=== PATIENT | female | born 1970 | race Caucasian/White ===

== ENCOUNTER 2016-08-22 15:20 | Inpatient (IN) | payer BC, OTHER ==
[~2016-08-22] VITALS: Ht 172.7 cm; Wt 96.5 kg
[2016-08-22] MEDS ORDERED: SODIUM CHLORIDE 0.9% 1000ML 1,000 ML IV SCH (15:55)
[2016-08-22] MEDS ORDERED: VALA500T60 PO (16:19)
[2016-08-22] MEDS ORDERED: LISI-461 PO (16:19)
[2016-08-22] MEDS ORDERED: INSDGI SC (16:19)
[2016-08-22] MEDS ORDERED: ATOR-24 PO ×2 (16:19→18:17)
[2016-08-22] MEDS ORDERED: GLIM2TAB2 PO (16:19)
[2016-08-22] MEDS ORDERED: METF-384 PO (16:19)
--- NOTE | 2016-08-22 16:26 | DIAGNOSTIC IMAGING REPORT ---
SINGLE VIEW CHEST CLINICAL HISTORY: Strokelike symptoms. FINDINGS: An AP, portable, upright chest radiograph is obtained. No prior studies are available for comparison at the time of dictation. The examination is degraded by portable technique and apical lordotic positioning. The cardiomediastinal silhouette is unremarkable. The lungs and pleural spaces are clear. No pneumothorax is seen. The bony thorax is grossly intact. IMPRESSION: No active disease in the chest. Electronically signed by: Albert Swanson M.D. 08/22/2016 4:25 PM Dictated Date/Time: 08/22/2016 4:25 PM
[2016-08-22 16:31] LABS: BASO % 0.3 %; BASO ABS # 0.03 K/uL (0-0.2); COMPLETE YES; EOS % 0.9 %; HEMATOCRIT 37.2 % (37-47); IG% 0.1 %; LYMPH % 19.9 %; LYMPH ABS # 1.92 K/uL (1.2-3.4); MEAN CELL VOLUME 81.9 fL (80-100); MEAN CORPUSCULAR HEMOGLOBIN 28.2 pg (25-34); MEAN CORPUSCULAR HGB CONC 34.4 g/dl (32-36); MEAN PLATELET VOLUME 10.5 fL (7.4-10.4); MONO % 5.5 %; NEUT % 73.3 %; PLATELET COUNT 296 K/uL (130-400); RED BLOOD COUNT 4.54 M/uL (4.2-5.4); WHITE BLOOD COUNT 9.67 K/uL (4.8-10.8)
[2016-08-22 16:39] LABS: PROTHROMBIN TIME (PATIENT) 10.3 SECONDS (9.0-12.0)
[2016-08-22 16:58] LABS: ALT/SGPT 28 U/L (12-78); BLOOD UREA NITROGEN 9 mg/dl (7-18); BUN/CREATININE RATIO 12.5 (10-20); CALCIUM 9.1 mg/dl (8.5-10.1); CARBON DIOXIDE 27 mmol/L (21-32); CHLORIDE 102 mmol/L (98-107); CREATININE 0.73 mg/dl (0.60-1.20); GLUCOSE 133 mg/dl (70-99); POTASSIUM 4.1 mmol/L (3.5-5.1); SODIUM 138 mmol/L (136-145)
[2016-08-22 17:03] LABS: ALKALINE PHOSPHATASE 72 U/L (45-117); AST/SGOT 16 U/L (15-37)
[2016-08-22 17:21] LABS: BENZODIAZEPINE, URINE NEG (NEG); COCAINE,URINE NEG (NEG); PHENCYCLIDINE, URINE NEG (NEG)
[2016-08-22] MEDS ORDERED: ONDANSETRON INJ 2 MG/ML 2 ML VIAL IV PRN (17:45)
[2016-08-22] MEDS ORDERED: PHARMACIST DISCHARGE MED REC CONSULT PRN (17:45)
[2016-08-22] MEDS ORDERED: ACETAMINOPHEN 325 MG TAB PO PRN (17:45)
[2016-08-22] MEDS ORDERED: NITROGLYCERIN 0.4 MG SL PER TAB CHARGE SL PRN (17:45)
[2016-08-22] MEDS ORDERED: DEXTROSE 50% 50 ML SYR IV PRN (18:00)
[2016-08-22] MEDS ORDERED: GLUCOSE 40% GEL 15 GM TUBE PO PRN (18:00)
[2016-08-22] MEDS ORDERED: GLUCAGON FOR INJ 1 MG VIAL SQ PRN (18:00)
[2016-08-22] MEDS ORDERED: GLUCOSE 10 TABS/TUBE PO PRN (18:00)
--- NOTE | 2016-08-22 18:19 | History and Physical ---
History & Physical Date & Time of Service: Aug 22, 2016 at 17:49 Chief Complaint: Numbness, Just Had Cat Scan, Eye Strange, Tounge Primary Care Physician: Rashid Strickland M.D. History of Present Illness This is a 46 y/o female with PMHx of DM 2, HTN, Dyslipidemia and other problems as outlined below who presents with complaints of persistent neurologic symptoms for the past 2 months. Patient reports that starting 2 months ago she began noticing intermittent R hand numbness as well as difficulty finding words. The sxs would persist for up to 30 minutes before resolving. A few weeks ago patient began experiencing R sided facial numbness that was associated with R eye "pressure". She saw her PCP yesterday and had blood work and a CT head done today. After the CT scan, patient's mother noticed that she was having garbled speech therefore they came to the ED for further evaluation. Patient's grandmother had a stroke in her 40s and patients father suffered a stroke at the age of 60. Patient has a history of uncontrolled DM2, HTN and Dyslipidemia. She was prescribed a statin 2 years ago however she has never taken it because a friend told her it would give her muscle aches. Pt denies fever/chills, headaches, diaphoresis, chest pain, palpitations, SOB, abd pain, N/V, bowel or bladder issues, LE edema, calf pain, difficulty ambulating, difficulty swallowing, lightheadedness/dizziness. In the ED, vitals are stable. labs reviewed are unremarkable. CT head + nonspec small hypodense patch in the L parietal area without evidence of hemorrhage. Pt is still experiencing difficulty finding words. She will be admitted for further evaluation and treatment. Past Medical/Surgical History Medical Problems: (1) Diabetes mellitus, type II Status: Chronic (2) Dyslipidemia Status: Chronic (3) HTN (hypertension) Status: Chronic Surgical Problems: (1) History of section Status: Resolved Family History No pertinent family history Social History Smoking Status: Never Smoker Alcohol Use: none Drug Use: none Marital Status: Housing status: lives with significant other Multi-Drug Resistant Organisms History of MDRO: No Allergies Uncoded Allergies: SILK TAPE- TAPE BLISTERS (Allergy, Unknown, 07/14/02) Home Medications Scheduled Atorvastatin (Lipitor), 40 MG PO DAILY Glimepiride (Glimepiride), 1 TAB PO DAILY Insulin Glargine (Lantus), 10 SC QPM Lisinopril (Zestril), 10 MG PO DAILY Metformin Hcl (Glucophage), 1,000 MG PO BID Valacyclovir (Valtrex), 1,000 MG PO Q12 Review of Systems Constitutional: No chills, No fatigue, No fever, No sweats, No weakness Eyes: + worsening of vision ENT: No hearing loss Respiratory: No cough, No shortness of breath Cardiovascular: No chest pain, No claudication, No edema, No palpitations Abdomen: No GI bleeding, No constipation, No diarrhea, No nausea, No pain, No vomiting Musculoskeletal: No calf pain, No swelling Genitourinary - Female: No dysuria Neurologic: + numbness/tingling, + problem reported (speech difficulty), No weakness Psychiatric: No depression symptoms Endocrine: No fatigue Hematologic / Lymphatic: No abnormal bleeding/bruising Integumentary: No new/changing skin lesions Physical Exam Vital Signs Date Time Temp Pulse Resp B/P Pulse Ox O2 Delivery O2 Flow Rate FiO2 08/22/16 17:24 66 20 131/89 98 Room Air 08/22/16 16:32 65 08/22/16 16:07 98 Room Air 08/22/16 15:29 36.9 73 16 160/87 98 General Appearance: WD/WN, no apparent distress, + pertinent finding (Pt is sitting up in bed with mother and at bedside) Head: normocephalic, atraumatic Eyes: normal inspection, PERRL, EOMI ENT: hearing grossly normal Neck: supple Respiratory/Chest: chest non-tender, lungs clear, normal breath sounds, no respiratory distress Cardiovascular: regular rate, rhythm, no edema, no murmur Abdomen/GI: normal bowel sounds, non tender, soft Back: normal inspection Extremities/Musculoskelatal: normal inspection, no calf tenderness, no pedal edema Neurologic/Psych: power distributor II-XII nml as tested, no motor/sensory deficits, alert, normal mood/affect, oriented x 3 Skin: normal color, warm/dry Diagnostics Laboratory Results Results Past 24 Hours Test 08/22/16 16:10 08/22/16 16:11 08/22/16 16:13 08/22/16 17:44 Range/Units Urine Opiates Screen NEG NEG Urine Methadone, Qualitative NEG NEG Urine Barbiturates NEG NEG Urine Phencyclidine (PCP) Level NEG NEG Ur Amphetamine/Methamphetamine NEG NEG MDMA (Ecstasy) Screen NEG NEG Urine Benzodiazepines Screen NEG NEG Urine Cocaine Metabolite NEG NEG Urine Marijuana (THC) NEG NEG Bedside Glucose 135 70-90 mg/dl White Blood Count 9.67 4.8-10.8 K/uL Red Blood Count 4.54 4.2-5.4 M/uL Hemoglobin 12.8 12.0-16.0 g/dL Hematocrit 37.2 37-47 % Mean Corpuscular Volume 81.9 80-100 fL Mean Corpuscular Hemoglobin 28.2 25-34 pg Mean Corpuscular Hemoglobin Concent 34.4 32-36 g/dl Platelet Count 296 130-400 K/uL Mean Platelet Volume 10.5 7.4-10.4 fL Neutrophils (%) (Auto) 73.3 % Lymphocytes (%) (Auto) 19.9 % Monocytes (%) (Auto) 5.5 % Eosinophils (%) (Auto) 0.9 % Basophils (%) (Auto) 0.3 % Neutrophils # (Auto) 7.09 1.4-6.5 K/uL Lymphocytes # (Auto) 1.92 1.2-3.4 K/uL Monocytes # (Auto) 0.53 0.11-0.59 K/uL Eosinophils # (Auto) 0.09 0-0.5 K/uL Basophils # (Auto) 0.03 0-0.2 K/uL RDW Standard Deviation 42.5 36.4-46.3 fL RDW Coefficient of Variation 14.2 11.5-14.5 % Immature Granulocyte % (Auto) 0.1 % Immature Granulocyte # (Auto) 0.01 0.00-0.02 K/uL Prothrombin Time 10.3 9.0-12.0 SECONDS Prothromb Time International Ratio 1.0 0.9-1.1 Activated Partial Thromboplast Time 25.6 21.0-31.0 SECONDS Partial Thromboplastin Ratio 1.0 Sodium Level 138 136-145 mmol/L Potassium Level 4.1 3.5-5.1 mmol/L Chloride Level 102 98-107 mmol/L Carbon Dioxide Level 27 21-32 mmol/L Anion Gap 9.0 3-11 mmol/L Blood Urea Nitrogen 9 7-18 mg/dl Creatinine 0.73 0.60-1.20 mg/dl Est Creatinine Clear Calc Drug Dose 117.8 ml/min Estimated GFR () 114.5 Estimated GFR (Non- 98.8 BUN/Creatinine Ratio 12.5 10-20 Random Glucose 133 70-99 mg/dl Calcium Level 9.1 8.5-10.1 mg/dl Total Bilirubin 0.3 0.2-1 mg/dl Direct Bilirubin < 0.1 0-0.2 mg/dl Aspartate Amino Transf (AST/SGOT) 16 15-37 U/L Alanine Aminotransferase (ALT/SGPT) 28 12-78 U/L Alkaline Phosphatase 72 45-117 U/L Total Creatine Kinase 80 26-192 U/L Creatine Kinase MB 0.8 0.5-3.6 ng/ml Creatine Kinase MB Ratio 1.0 0-3.0 Troponin I < 0.015 0-0.045 ng/ml Total Protein 7.5 6.4-8.2 gm/dl Albumin 3.7 3.4-5.0 gm/dl Lipase 174 73-393 U/L Diagnostic Radiology CXR IMPRESSION: No active disease in the chest. CT HEAD IMPRESSION 1. Nonspecific small patchy hypodensity in the left parietal temporal location without evidence for hemorrhage or any significant mass effect. This may be artifactual but other etiologies such as acute/ subacute infarct demyelination, infection or a low-grade neoplasm cannot be entirely excluded. MRI brain without and with contrast is recommended for further evaluation. EKG EKG: NSR at 60 bpm with no acute ischemic changes noted Impression Assessment and Plan NEUROLOGIC SXS; R/O STROKE pt presented with intermittent speech difficulties, R hand numbness, R facial numbness and visual changes over the past 2 months -admit to telemetry -RFs include + FmHx, uncontrolled DM 2, HTN, Dyslipidemia -CT head Impression: Nonspecific small patchy hypodensity in the left parietal temporal location without evidence for hemorrhage or any significant mass effect. This may be artifactual but other etiologies such as acute/ subacute infarct demyelination, infection or a low-grade neoplasm cannot be entirely excluded -check brain MRI, MRA head and neck for further evaluation -obtain echo to r/o any cardiac abnormalities -pt is not a candidate for Tpa at this time 2* to time elapsed since start of sxs -neuro checks q4h -fasting lipids in AM -start ASA -PT/OT -consult speech to evaluate swallowing -NPO until speech eval is complete -consult neuro, Dr. Marissa Randhawa-pending input -allow for permissive HTN in setting of possible CVA -continue to monitor UNCONTROLLED DM 2 -recent HgB A1C 9.2 -hold metformin and glimepiride -cont Lantus -start ISS -monitor BSG AC HS HTN -stable -cont lisinopril -monitor DYSLIPIDEMIA -patient non-compliant with statin -check fasting lipid panel in AM DVT PROPHYLAXIS -subq Lovenox CODE STATUS -FULL CODE status DISPO Pt was seen in collaboration with Dr. Sibley. Please see his addendum for further details. Thanks! -Of note: patient will be followed by Dr. Le starting tomorrow AM. Attending Addendum Pt was seen and examined with at bedside. Agreed with Brooklyn YEN's Physical exam, assessment and Plan. 46 y/o female with PMHx of DM 2, HTN, Dyslipidemia presents with stroke like symptoms. Pt said that her symptoms started few weeks ago. Pt said that few weeks ago she had R sided facial numbness associated with vision problems. She also mentions some speech difficulty. She saw her PCP yesterday that ordered a CT head that showed a small hypodense patch in the L parietal area without evidence of hemorrhage. General- No acute distress Head- atraumatic Eyes- PERRL, EOMI ENT- oropharynx clear Neck- supple, no JVD Lungs- clear to auscultation, no wheezing Heart- regular rhythm; no murmur Abdomen- normal bowel sounds, soft Extremities- no calf tenderness Neuro- alert, oriented x 3; PERRL, EOMI; no facial palsy; no dysarthria; motor 5 /5 bilaterally, finger to nose intact bilaterally Skin- warm & dry A/P Stroke like symptoms CT head CT head that showed a small hypodense patch in the L parietal area without evidence of hemorrhage. Will get MRI of head and MRA head and neck will get echo neuro checks q4h Check lipid in am start ASA, Plavix PT/OT Consult neurology imaging, Lab, EKG reviewed Please refer to Brooklyn YEN's documentation for other problems. Nina Sibley MD VTE Prophylaxis VTE Risk Assessment Done? Y/N: Yes Risk Level: Low
--- NOTE | 2016-08-22 19:22 | DIAGNOSTIC IMAGING REPORT ---
ADDENDUM Review of the raw data images suggest a moderate stenotic process of the proximal left middle cerebral artery. All remaining initial comments are unchanged. Electronically signed by: Malachi Tubbs M.D. 08/22/2016 8:02 PM Dictated Date/Time: 08/22/2016 8:01 PM ORIGINAL REPORT Brain MRA HISTORY: Mental status change eval for stroke TECHNIQUE: 3-D [id number] MRA of the brain was performed without contrast. COMPARISON STUDY: None. FINDINGS: Visualized intracranial internal carotid arteries, distal vertebral arteries, and basilar artery are widely patent. There is no significant stenosis, occlusion, or aneurysm seen within the bilateral ACAs, MCAs, or fire captain marine. Right vertebral artery is small in caliber. Similar, congenital basis. IMPRESSION: No significant stenosis, occlusion, or aneurysm within the [place]. Electronically signed by: Malachi Tubbs M.D. 08/22/2016 7:21 PM Dictated Date/Time: 08/22/2016 7:18 PM
[2016-08-22] MEDS ORDERED: GADAVIST IV PRN (19:45)
--- NOTE | 2016-08-22 19:59 | DIAGNOSTIC IMAGING REPORT ---
MRI OF THE BRAIN WITHOUT AND WITH IV CONTRAST CLINICAL HISTORY: eval for stroke mental status change COMPARISON STUDY: No previous studies for comparison. TECHNIQUE: Utilizing a 1.5 Nilda magnet and dedicated coil, multiplanar, multiecho imaging of the brain was performed pre and postcontrast administration. IV administration of 8 mL of Gadavist contrast was uneventful. FINDINGS: Diffusion-weighted images show several punctate foci of acute/subacute ischemic international exchange coordinator the left parietal convexity and left occipital lobe region. This is a watershed type phenomenon. Signal characteristics of the cerebellar as well as cerebral hemispheres otherwise indicate a component of chronic small vessel change. Ventricular system is midline. Postcontrast postcontrast images demonstrate faint postcontrast enhancement of the areas of infarction. This would indicate a subacute phenomenon. Ventricular system is midline. IMPRESSION: 1. Several punctate foci of acute/subacute ischemic change left frontoparietal convexity and left occipital lobe. 2. 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 Electronically signed by: Malachi Tubbs M.D. 08/22/2016 7:58 PM Dictated Date/Time: 08/22/2016 7:54 PM
--- NOTE | 2016-08-22 20:01 | DIAGNOSTIC IMAGING REPORT ---
NECK MRA HISTORY: Stroke eval for cava TECHNIQUE: [id number] and gadolinium-enhanced MRA of the neck was performed both before and after the intravenous administration of contrast. All measurements were calculated based on NASCET criteria. COMPARISON STUDY: None. FINDINGS: The aortic arch and proximal great vessels are widely patent. There is no significant stenosis, occlusion, or dissection identified within the bilateral common carotid, internal carotid, or vertebral arteries. Mild atherosclerotic change carotid bifurcations. 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 IMPRESSION: Mild atherosclerotic change of the carotid bifurcations. No significant stenotic process. 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 08/22/2016 8:00 PM Dictated Date/Time: 08/22/2016 7:59 PM
[2016-08-22] MEDS ORDERED: CLOPIDOGREL BISULFATE 75 MG TAB PO ONE (20:52)
[2016-08-22] MEDS ORDERED: ASPIRIN 81 MG ECTAB PO ONE (20:55)
[2016-08-22 20:59] VITALS: BP 151/67; PULSE 67; TEMP 36.5; BMI 32.8
[2016-08-22] MEDS ORDERED: ENOXAPARIN 40 MG/0.4 ML SYR SC SCH (21:00)
[2016-08-22] MEDS ORDERED: INSULIN ASPART 100 UNITS/ML 3 ML PEN SC SCH (21:00)
[2016-08-22] MEDS ORDERED: NURSING VERBAL MED ORDER ONE (21:45)
[2016-08-22] MEDS: HEPARIN SOD 5000 UNIT/0.5 ML CARP SQ SCH (21:49)
[2016-08-22] MEDS: INSULIN GLARGINE SOLOSTAR 100 UNITS/ML 3 ML PEN SC SCH (21:49)
--- NOTE | 2016-08-22 22:58 | EMERGENCY ROOM VISIT NOTE ---
History Report prepared by Suzette: Denzel Payne Under the Supervision of: Dr. Bao Morales M.D. First contact with patient: 15:37 Chief Complaint: OTHER COMPLAINT Stated Complaint: NUMBNESS, JUST HAD CAT SCAN, EYE STRANGE, TOUNGE History of Present Illness The patient is a 46 year old female who presents to the Emergency Room with complaints of progressing neurologic symptoms for the past several months. The patient first notes numbness of the right hand intermittently over the past several months. Two or three weeks ago she experienced right-sided facial numbness when she was in [place]. The patient has also had trouble speaking and finding words for the past several months. She saw her primary doctor yesterday and had blood work. Today she had a CT scan, with the results still pending. The patient's mother notes that she was having garbled speech after the CT scan today, and she could notice her tongue while talking. Her entire tongue was numb for approximately 20 minutes. The patient was noted to be hyperglycemic when she saw her doctor, but not enough to attribute to her symptoms. The patient denies trouble swallowing or understanding others. She has noticed intermittent "pressure" in her right eye, and had pinpoint loss of vision two months ago. She has also had recurrent abdominal pain over the past several months. The pain is not worse after eating. She still has her gallbladder. The patient has a history of hypertension. Source of History: patient, parent Onset: several months ago Position: other (neurologic) Quality: other (neuro symptoms) Timing: other (progressing) Associated Symptoms: + abdominal pain, + numbness Review of Systems See HPI for pertinent positives & negatives. A total of 10 systems reviewed and were otherwise negative. Past Medical & Surgical Medical Problems: (1) Diabetes mellitus, type II (2) Dyslipidemia (3) HTN (hypertension) (4) Stroke Surgical Problems: (1) History of section Family History No pertinent family history Social History Smoking Status: Never Smoker Housing Status: lives with family Current/Historical Medications Scheduled Atorvastatin (Lipitor), 40 MG PO DAILY Glimepiride (Glimepiride), 1 TAB PO DAILY Insulin Glargine (Lantus), 10 SC QPM Lisinopril (Zestril), 10 MG PO DAILY Metformin Hcl (Glucophage), 1,000 MG PO BID Valacyclovir (Valtrex), 1,000 MG PO Q12 Allergies Uncoded Allergies: SILK TAPE- TAPE BLISTERS (Allergy, Unknown, 07/14/02) Physical Exam Vital Signs Date Time Temp Pulse Resp B/P Pulse Ox O2 Delivery O2 Flow Rate FiO2 08/22/16 17:24 66 20 131/89 98 Room Air 08/22/16 16:32 65 08/22/16 16:07 98 Room Air 08/22/16 15:29 36.9 73 16 160/87 98 Physical Exam Constitutional: Vital signs reviewed. Eyes: Pupils are equal round reactive to light. Conjunctiva are noninjected. ENT: Pharynx is clear without erythema or exudate. Mucous membranes are moist. Neck supple without meningeal signs. Respiratory: Clear to auscultation bilaterally. Breath sounds are equal bilaterally. Cardiovascular: Regular rate and rhythm. No rubs or gallops. GI: Soft, nondistended. Bowel sounds are present. Abdomen is very mildly tender in the right upper quadrant without guarding. Musculoskeletal: No peripheral edema. No lower extremity tenderness. Integumentary: No cyanosis. Neurological: The patient is awake and alert. Cranial nerves II-XII are intact. Motor is 5 out of 5 all extremities. Sensation is intact to light touch all extremities. Normal speech. No pronator drift. No limb ataxia. Psychiatric: Normal affect. Medical Decision & Procedures ER Provider Diagnostic Interpretation: Radiology results as stated below per my review and the radiologist's interpretation: SINGLE VIEW CHEST CLINICAL HISTORY: Strokelike symptoms. FINDINGS: An AP, portable, upright chest radiograph is obtained. No prior studies are available for comparison at the time of dictation. The examination is degraded by portable technique and apical lordotic positioning. The cardiomediastinal silhouette is unremarkable. The lungs and pleural spaces are clear. No pneumothorax is seen. The bony thorax is grossly intact. IMPRESSION: No active disease in the chest. Electronically signed by: Albert Swanson M.D. 08/22/2016 4:25 PM Dictated Date/Time: 08/22/2016 4:[address] HEAD WITHOUT CONTRAST Nonspecific small patchy hypodensity in the left parietal temporal location without evidence for hemorrhage or any significant mass effect. This may be artifactual but other etiologies such as acute/subacute infarct demyelination, infection, or a low-grade neoplasm cannot be excluded. MRI brain without and with contrast is recommended for further evaluation. MRI OF THE BRAIN WITHOUT AND WITH IV CONTRAST CLINICAL HISTORY: eval for stroke mental status change COMPARISON STUDY: No previous studies for comparison. TECHNIQUE: Utilizing a 1.5 Nilda magnet and dedicated coil, multiplanar, multiecho imaging of the brain was performed pre and postcontrast administration. IV administration of 8 mL of Gadavist contrast was uneventful. FINDINGS: Diffusion-weighted images show several punctate foci of acute/subacute ischemic change agent the left parietal convexity and left occipital lobe region. This is a watershed type phenomenon. Signal characteristics of the cerebellar as well as cerebral hemispheres otherwise indicate a component of chronic small vessel change. Ventricular system is midline. Postcontrast postcontrast images demonstrate faint postcontrast enhancement of the areas of infarction. This would indicate a subacute phenomenon. Ventricular system is midline. IMPRESSION: 1. Several punctate foci of acute/subacute ischemic change left frontoparietal convexity and left occipital lobe. 2. 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 Electronically signed by: Malachi Tubbs M.D. 08/22/2016 7:58 PM Dictated Date/Time: 08/22/2016 7:54 PM Brain MRA HISTORY: Mental status change eval for stroke TECHNIQUE: 3-D [id number] MRA of the brain was performed without contrast. COMPARISON STUDY: None. FINDINGS: Visualized intracranial internal carotid arteries, distal vertebral arteries, and basilar artery are widely patent. There is no significant stenosis, occlusion, or aneurysm seen within the bilateral ACAs, MCAs, or highway construction inspector. Right vertebral artery is small in caliber. Similar, congenital basis. IMPRESSION: No significant stenosis, occlusion, or aneurysm within the jackson of [place]. Electronically signed by: Malachi Tubbs M.D. 08/22/2016 7:21 PM Dictated Date/Time: 08/22/2016 7:18 PM NECK MRA HISTORY: Stroke eval for cava TECHNIQUE: [id number] and gadolinium-enhanced MRA of the neck was performed both before and after the intravenous administration of contrast. All measurements were calculated based on NASCET criteria. COMPARISON STUDY: None. FINDINGS: The aortic arch and proximal great vessels are widely patent. There is no significant stenosis, occlusion, or dissection identified within the bilateral common carotid, internal carotid, or vertebral arteries. Mild atherosclerotic change carotid bifurcations. 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 IMPRESSION: Mild atherosclerotic change of the carotid bifurcations. No significant stenotic process. 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 08/22/2016 8:00 PM Dictated Date/Time: 08/22/2016 7:59 PM Laboratory Results 08/22/16 16:13 Red Blood Count 4.54, Mean Corpuscular Volume 81.9, Mean Corpuscular Hemoglobin 28.2, Mean Corpuscular Hemoglobin Concent 34.4, Mean Platelet Volume 10.5, Neutrophils (%) (Auto) 73.3, Lymphocytes (%) (Auto) 19.9, Monocytes (%) (Auto) 5.5, Eosinophils (%) (Auto) 0.9, Basophils (%) (Auto) 0.3, Neutrophils # (Auto) 7.09, Lymphocytes # (Auto) 1.92, Monocytes # (Auto) 0.53, Eosinophils # (Auto) 0.09, Basophils # (Auto) 0.03 08/22/16 16:13 Test 08/22/16 16:10 08/22/16 16:13 08/22/16 17:44 Urine Opiates Screen NEG (NEG) Urine Methadone, Qualitative NEG (NEG) Urine Barbiturates NEG (NEG) Urine Phencyclidine (PCP) Level NEG (NEG) Ur Amphetamine/Methamphetamine NEG (NEG) MDMA (Ecstasy) Screen NEG (NEG) Urine Benzodiazepines Screen NEG (NEG) Urine Cocaine Metabolite NEG (NEG) Urine Marijuana (THC) NEG (NEG) White Blood Count 9.67 K/uL (4.8-10.8) Red Blood Count 4.54 M/uL (4.2-5.4) Hemoglobin 12.8 g/dL (12.0-16.0) Hematocrit 37.2 % (37-47) Mean Corpuscular Volume 81.9 fL (80-100) Mean Corpuscular Hemoglobin 28.2 pg (25-34) Mean Corpuscular Hemoglobin Concent 34.4 g/dl (32-36) Platelet Count 296 K/uL (130-400) Mean Platelet Volume 10.5 fL (7.4-10.4) Neutrophils (%) (Auto) 73.3 % Lymphocytes (%) (Auto) 19.9 % Monocytes (%) (Auto) 5.5 % Eosinophils (%) (Auto) 0.9 % Basophils (%) (Auto) 0.3 % Neutrophils # (Auto) 7.09 K/uL (1.4-6.5) Lymphocytes # (Auto) 1.92 K/uL (1.2-3.4) Monocytes # (Auto) 0.53 K/uL (0.11-0.59) Eosinophils # (Auto) 0.09 K/uL (0-0.5) Basophils # (Auto) 0.03 K/uL (0-0.2) RDW Standard Deviation 42.5 fL (36.4-46.3) RDW Coefficient of Variation 14.2 % (11.5-14.5) Immature Granulocyte % (Auto) 0.1 % Immature Granulocyte # (Auto) 0.01 K/uL (0.00-0.02) Prothrombin Time 10.3 SECONDS (9.0-12.0) Prothromb Time International Ratio 1.0 (0.9-1.1) Activated Partial Thromboplast Time 25.6 SECONDS (21.0-31.0) Partial Thromboplastin Ratio 1.0 Anion Gap 9.0 mmol/L (3-11) Est Creatinine Clear Calc Drug Dose 117.8 ml/min Estimated GFR () 114.5 Estimated GFR (Non- 98.8 BUN/Creatinine Ratio 12.5 (10-20) Calcium Level 9.1 mg/dl (8.5-10.1) Total Bilirubin 0.3 mg/dl (0.2-1) Direct Bilirubin < 0.1 mg/dl (0-0.2) Aspartate Amino Transf (AST/SGOT) 16 U/L (15-37) Alanine Aminotransferase (ALT/SGPT) 28 U/L (12-78) Alkaline Phosphatase 72 U/L (45-117) Total Creatine Kinase 80 U/L (26-192) Creatine Kinase MB 0.8 ng/ml (0.5-3.6) Creatine Kinase MB Ratio 1.0 (0-3.0) Troponin I < 0.015 ng/ml (0-0.045) Total Protein 7.5 gm/dl (6.4-8.2) Albumin 3.7 gm/dl (3.4-5.0) Lipase 174 U/L (73-393) Laboratory results as reviewed by me. Medications Administered Medications (Trade) Dose Ordered Sig/Rudy Route Start Time Stop Time Status Last Admin Dose Admin Sodium Chloride (Nss 1000ml) 1,000 ml @ 50 mls/hr Q20H IV 08/22/16 15:55 08/22/16 20:15 DC 08/22/16 16:27 50 MLS/HR ECG Indication: other (neuro symptoms) Rate (beats per minute): 60 Rhythm: normal sinus Findings: no acute ischemic change, no ectopy ED Course 1540: The patient was evaluated in room A3. A complete history and physical exam was performed. 1555: NSS 1000 ml @ 50 mls/hr. 1645: Discussed the CT results with her. I recommended hospitalization. 1653: Spoke with [place] [facility]C, [facility] The patient will be evaluated. Medical Decision This is a 46-year-old female who presents with intermittent neurologic symptoms worsening today. Differential diagnosis includes intracranial mass, intracranial hemorrhage, TIA, CVA, metabolic derangement, demyelinating disease. I did perform a limited focused review of portions of the patient's old chart on the electronic medical record. The patient has had no recent pertinent visits to this hospital. I did evaluate the patient as noted above. The patient is presenting with intermittent neurologic symptoms as described above. They have been going on for some time but worsened today. Currently she is neurologically intact without any deficits on my examination. IV access was established. The patient was placed on a continuous teletype operator. I did order and personally review the patient's 12-lead EKG and chest x-ray as described above. I did order and review the patient's blood work as noted in the electronic medical record. I did review the patient's CT results from the [email or web address] system. She does have patchy hypodensities in the parietal region. This may represent acute or subacute infarct versus neoplasm versus demyelinating disease. I did discuss the results with the patient. I did recommend hospitalization and ordered an MRI as well as MRA of the brain as well as MRA of the neck. I did discuss the case with the hospitalist and pillowcase cutter. Consults Time Called: 1649 Consulting Physician: Brooklyn Will PA-C, [facility]. Returned Call: [phone]: Spoke with Brooklyn Will, PA-C, [facility]. The patient will be evaluated. Impression Primary Impression: CVA (cerebral vascular accident) Additional Impressions: Aphasia Numbness of tongue Scribe Attestation The scribe's documentation has been prepared under my direct and personally reviewed by me in its entirety. I confirm that the note above accurately reflects all work, treatment, procedures, and medical decision making performed by me. Departure Information Dispostion Being Evaluated By Hospitalist Patient Instructions My [facility] Problem Qualifiers Primary Impression: CVA (cerebral vascular accident) CVA mechanism: unspecified Qualified Codes: I63.9 - Cerebral infarction, unspecified
[2016-08-22 23:48] VITALS: BP 125/50; PULSE 72; TEMP 36.6; O2SAT 96
[2016-08-23] VITALS (9 sets, daily range): BP systolic 123–169; BP diastolic 50–71; PULSE 59–70; TEMP 36.6–36.9; O2SAT 96–97
[2016-08-23] MEDS ORDERED: INSULIN ASPART 100 UNITS/ML 3 ML PEN SC SCH
[2016-08-23 05:44] LABS: ESTIMATED AVERAGE GLUCOSE 235 mg/dl; HA1C FLAG Normal (Normal)
[2016-08-23 06:06] LABS: BASO % 0.3 %; BASO ABS # 0.02 K/uL (0-0.2); COMPLETE YES; EOS % 1.5 %; HEMATOCRIT 35.3 % (37-47); IG% 0.1 %; LYMPH % 24.5 %; LYMPH ABS # 1.81 K/uL (1.2-3.4); MEAN CELL VOLUME 82.7 fL (80-100); MEAN CORPUSCULAR HEMOGLOBIN 28.1 pg (25-34); MEAN PLATELET VOLUME 10.8 fL (7.4-10.4); MONO % 6.4 %; NEUT % 67.2 %; PLATELET COUNT 263 K/uL (130-400); RED BLOOD COUNT 4.27 M/uL (4.2-5.4)
[2016-08-23] MEDS: HEPARIN SOD 5000 UNIT/0.5 ML CARP SQ SCH (06:25)
[2016-08-23 06:32] LABS: BUN/CREATININE RATIO 13.2 (10-20); CALCIUM 8.5 mg/dl (8.5-10.1); CREATININE 0.75 mg/dl (0.60-1.20)
[2016-08-23 06:35] LABS: CHOLESTEROL/HDL RATIO 5.2
[2016-08-23] MEDS: ASPIRIN 81 MG ECTAB PO SCH (07:24)
[2016-08-23] MEDS: LISINOPRIL 10 MG TAB PO SCH (07:24)
[2016-08-23] MEDS: ATORVASTATIN 40 MG TAB PO SCH (07:24)
[2016-08-23] MEDS: CLOPIDOGREL BISULFATE 75 MG TAB PO SCH (07:24)
[2016-08-23] MEDS: INSULIN ASPART 100 UNITS/ML 3 ML PEN SC SCH ×4 (08:42→21:34)
[2016-08-23] MEDS ORDERED: OPTIRAY 320 IV PRN (12:00)
--- NOTE | 2016-08-23 13:30 | DIAGNOSTIC IMAGING REPORT ---
CT SCAN OF THE BRAIN WITHOUT IV CONTRAST; CT ANGIOGRAM OF THE BRAIN; CT ANGIOGRAM OF THE NECK CLINICAL HISTORY: Strokelike symptoms. COMPARISON STUDY: MRI of the brain, MR angiogram of the brain, and MR angiography of the neck dated 08/22/2016. TECHNIQUE: Unenhanced axial CT scan of the brain is performed. Subsequently, following the IV administration of 119 of Optiray 320, CT angiogram of the head and neck was performed from the aortic arch to the vertex. Images are reviewed in the axial, sagittal, and coronal planes. 3-D MIPS images are created and assessed. IV contrast was administered without complication. All measurements were calculated based on NASCET criteria. CT DOSE: 1144.76 mGy.cm FINDINGS: Brain parenchyma: There are scattered foci of low-attenuation within the left-sided subcortical and periventricular white matter. The brain parenchyma is otherwise normal in appearance. There is no hemorrhage, mass effect, or evidence of acute territorial ischemia by CT criteria. There is no evidence of enhancing mass lesion on the angiogram phase images. The ventricles, sulci, and cisterns are normal in configuration. You-white matter differentiation is preserved. No extra-axial fluid collection is seen. Thoracic aorta: Visualized portions of the thoracic aorta are normal in caliber. The aortic arch demonstrates standard 3-vessel anatomy. Right carotid arterial system: The right common carotid artery is widely patent. There is mild focal stenosis (less than 50%) secondary to soft plaque at the origin of the right internal carotid artery best seen on axial image #207. The remainder of the right internal carotid artery in the neck is widely patent. The right external carotid artery is clear. Left carotid arterial system: The left common carotid artery is widely patent. There is focal stenosis measuring approximately 60% in the proximal left internal carotid artery secondary to soft plaque seen on axial image #231 The left external carotid artery is clear. Vertebral arteries: Widely patent bilaterally. The left vertebral artery is dominant. Subclavian arteries: Widely patent bilaterally. Intracranial vasculature: There is a left posterior communicating artery. There is high-grade (approximate 75%) stenosis of the supraclinoid left internal carotid artery with near complete occlusion at the left carotid apex. This is best seen on axial images #78 through #87. There is also narrowing at the origin of the left middle cerebral artery. The remainder of the left middle cerebral artery is widely patent, as is the right anterior cervical artery. The right internal carotid artery at the skull base as well as the right anterior and middle arteries are widely patent. The vertebrobasilar system and posterior cerebral arteries are widely patent. The left vertebral artery is dominant and the right vertebral artery is diminutive. No aneurysm is identified. No focal vessel cut off is seen. Jugular veins: Widely patent bilaterally. Dural sinuses: Clear as imaged. Lung apices: Partially visualized upper lobe lung parenchyma appears clear. Soft tissues: The visualized pharyngeal soft tissues are normal in appearance noting angiographic phase technique. The oropharyngeal airway appears widely patent. The salivary and thyroid glands are normal in appearance. No cervical lymphadenopathy is seen. Skeletal structures: The calvarium appears intact. The cervical spine is within normal limits. Sinuses and mastoids: Trace mucosal thickening is seen within the maxillary antra. The remaining paranasal sinuses are clear. The mastoid air cells are well pneumatized. IMPRESSION: 1. There is no hemorrhage, mass effect, or evidence of acute territorial ischemia by CT criteria. 2. There are subtle foci of low-attenuation within the left-sided subcortical and periventricular white matter. These likely correspond to the small infarcts identified on yesterday's MRI. 3. There is high-grade stenosis (approximately 75%) within the supraclinoid portion of the intracranial left internal carotid artery with near complete occlusion at the left carotid apex. Narrowing is also seen at the origin of the left middle cerebral artery. The remainder of the left middle cerebral artery is clear. 4. The remaining intracranial vessels are patent. No aneurysm or focal vessel cut off is seen. 5. There is mild (less than 50%) stenosis at the origin of the right internal carotid artery secondary to soft plaque. 6. There is approximately 60% stenosis at the origin of the left internal carotid artery secondary to soft plaque. 7. The vertebral arteries are patent. 8. Additional findings as above. Electronically signed by: Albert Swanson M.D. 08/23/2016 1:29 PM Dictated Date/Time: 08/23/2016 1:09 PM
--- NOTE | 2016-08-23 13:31 | DIAGNOSTIC IMAGING REPORT ---
ULTRASOUND BILATERAL LOWER EXTREMITY VENOUS CLINICAL HISTORY: Calf pain. COMPARISON STUDY: No priors. TECHNIQUE: Real-time, grayscale, and color Doppler sonography of the deep veins of the right and left lower extremity was performed from the inguinal crease to the calf. Compression and augmentation were utilized. FINDINGS: There is no sonographic evidence of deep venous thrombosis identified in the right or left lower extremity. The common femoral, superficial femoral, and popliteal veins are patent and normally compressible bilaterally. The greater saphenous vein and the profunda femoris vein at the junction with the common femoral vein are clear in both legs. The visualized calf veins are patent bilaterally. IMPRESSION: There is no sonographic evidence of deep venous thrombosis identified in the right or left lower extremity. Electronically signed by: Albert Swanson M.D. 08/23/2016 1:30 PM Dictated Date/Time: 08/23/2016 1:29 PM
--- NOTE | 2016-08-23 16:32 | NEUROLOGY CONSULTATION ---
DATE OF CONSULTATION: 08/23/2016 REASON FOR CONSULTATION: Possible stroke. HISTORY OF PRESENT ILLNESS: The patient is a 46-year-old right-handed female with a history of diabetes, hypertension, hyperlipidemia, who is noncompliant with her medical therapy. She has had a variety of neurologic symptoms over the last 3 months. Three months ago, she had an episode of her right face being numb and then later her right arm being numb. This was not accompanied by headache or any scintillating visual phenomenon and the total episode lasted about an hour. For 3 months or so, she has noted that she has difficulty with vision in part of her right eye, perhaps centrally. It is there most of the time when she tries to read. For at least a year, she has had flashing lights in both eyes, right greater than left with a halo around things, lasting up to a day at a time. She had preliminarily seen ophthalmology and she was to come back, I believe for visual field, which she did not do. A week ago, she was on a long car ride with her son. She noted some difficulty with directions at that time and after returning from the car ride, noted some difficulty with her memory. About 2 days ago, her speech was slurred and she had word finding difficulties. She went to Dr. Strickland's office, who ordered a CAT scan for the following day. The CAT scan showed some minor abnormality in the white matter of the left parietal lobe and given that she had increasing dysarthria during the time of the CAT scan, she came to our Emergency Room for evaluation. Her neurologic deficit if any, was quite mild and given the fact that her neurologic symptoms had been going on intermittently and her deficit mild, the stroke neurologist elected not to give her TPA. She was started on aspirin and Plavix and she has minor ongoing symptoms. She has otherwise been well. She has been noncompliant with her insulin, never took her lipid lowering agents. She does not think she has had any symptoms of hypoglycemia. She does feel at times that her blood sugar is elevated. She has not had any head or neck injury, although intermittently wrestles with her son who is a high school wrestler. She has not had any medical or dental procedures. None of her medicines are new or changed in dose. She rarely has an odd pressure feeling in her head. She may have had migraines in the past. She intermittently has sweats. No rash, joint pain, unexpected weight loss, fevers, chills, chest pain, palpitations, shortness of breath. No leg pain with exertion. PAST MEDICAL HISTORY: As above. She has no history of rheumatic fever or murmur. She may have had a seizure when she was a 2-year-old. She has no history of DVT or PE. PAST SURGICAL HISTORY: . SOCIAL HISTORY: Nonsmoker, nondrinker. FAMILY HISTORY: Her mother is diabetic. Her father has had multiple strokes beginning at age 60. A paternal grandmother had a stroke at 40, but lived to be . Her brother, who is an alcoholic and in an accident, had clotting problems. One son has asthma. MEDICATIONS: On admission were glimepiride, Lantus, Zestril, Glucophage, and Valtrex as needed. Her MRI of the brain, which I have reviewed, showed several punctate areas of acute and subacute ischemic change in the left frontoparietal convexity in the left occipital lobe, typical of a watershed type infarct, although I believe it to be in an MCA distribution. Reviewing the source images on MRA, Dr. Tubbs felt there may have been moderate stenosis of the proximal left MCA. An MRA of the neck did not show any high-grade carotid stenosis. Small caliber right vertebral artery was noted. Electrocardiogram on admission was normal sinus, normal EKG. Her blood pressure on admission was 160/87. Lab work, CBC unremarkable. PT, PTT normal. Blood sugar 135. Otherwise, electrolytes, liver function and CK were normal. Hypercoagulable state is pending. CURRENT MEDICINES: Aspirin, atorvastatin, lisinopril, Plavix, insulin, subQ heparin. PHYSICAL EXAMINATION: VITAL SIGNS: 36.7, 61, 18, 123/71, 97%. GENERAL: The patient is awake and alert. She has very mild dysarthria and mild intermittent word finding difficulty. She is oriented x3. She is able to name, repeat and follow a 3-step command. HEAD: Normocephalic, atraumatic. I appeared to have some difficulty palpating the left temporal artery. NECK: Supple. There is no spinal tenderness. No rashes are noted. There are no carotid bruits. HEART: Regular rate and rhythm. EXTREMITIES: Radial and posterior tibial pulses are intact. There is no calf swelling or tenderness. NEUROLOGIC: Pupils are equal, round, reactive to light. The optic nerves are unremarkable. There are normal black, motility, facial sensation. There is very marginal flattening of the right nasolabial fold. Tongue is midline. Speech is again minimally dysarthric. Motor: Normal bulk and tone. Full strength. There is a minor right drift but equal rapid alternating movements. There is intact to light touch, temperature, vibration, graphesthesia. Symmetric reflexes. Downgoing toes. [id number] and [id number] are normal. Gait is remarkable for marginally decreased right arm swing. IMPRESSION: This patient has had a stuttering left middle cerebral artery ischemia and has multiple vascular risk factors. PLAN: I agree with antiplatelet therapy with aspirin and Plavix. Her blood pressure currently is normal. Even if it was not, I would allow her to be modestly hypertensive before treating. Agree with reducing her risk factors by treating hyperlipidemia and blood sugar. I would like her to have a CTA to confirm that the left internal carotid is patent and that there is or is not a left MCA stenosis. She will have an echo today and likely she will need a transesophageal echo on Thursday. I have ordered a hypercoagulable state. We will add a sed rate, RADHA, RPR as well. The patient will need physical therapy, speech therapy. We will follow with you. TIMOTHY
--- NOTE | 2016-08-23 16:54 | Progress Note ---
Medicine Progress Note Date & Time of Visit: Aug 23, 2016 at 12:17. Subjective 46 yo F admitted for acute stroke symptoms -was getting an outpatient CT scan [employer] and mother noticed facial droop afterwards. -significant family history including a grandmother and father with early strokes and a brother with unprovoked blood clots -waxing/waning TIA symptoms reported for the last two months including: R facial numbness, R facial droop, garbled speech, personality changes while on her trip in [place] last week, and visual field deficits. -MRI/MRA reveals ischemic changes on L side and mod stenosis of the prox L MCA -no issues with ambulation or swallowing at this time and she is eating and tolerating PO without difficulty -she reports never trying statins in the past and stayed away from them only because the reported side effects worried her -she is doing well on the lipitor started this admission Objective Last 8 Hrs Date Time Temp Pulse Resp B/P Pulse Ox O2 Delivery O2 Flow Rate FiO2 08/23/16 11:48 36.8 70 18 137/52 97 Room Air 08/23/16 08:23 36.7 61 18 123/71 97 Room Air 08/23/16 08:01 96 Room Air 08/23/16 08:01 96 Room Air Physical Exam: GEN: WNWD, in no acute distress, alert and appropriate HEENT: NC/AT, PERRL, normal sclerae, EOMI CARDIO: reg rate, S1/2 heard without m/g/r LUNGS: CTA bilaterally, no crackles, rales or wheezes, good diaphragmatic excursion ABD: soft, non-tender, non-distended, no rebound or guarding, +BS EXTREMITY: RP and DP palpable 2+ bilat, no LE swelling or edema, extremities are warm and well-perfused NEURO: CN 2-12 intact, sensation intact throughout, coordination intact. reflexes could not be elicited. Romberg negative, but Tandem stance was positive MUSC: 5/5 strength throughout, no focal deficits, able to stand at bedside without issues. SKIN: warm and dry Laboratory Results: 08/23/16 05:21 Red Blood Count 4.27, Mean Corpuscular Volume 82.7, Mean Corpuscular Hemoglobin 28.1, Mean Corpuscular Hemoglobin Concent 34.0, Mean Platelet Volume 10.8, Neutrophils (%) (Auto) 67.2, Lymphocytes (%) (Auto) 24.5, Monocytes (%) (Auto) 6.4, Eosinophils (%) (Auto) 1.5, Basophils (%) (Auto) 0.3, Neutrophils # (Auto) 4.98, Lymphocytes # (Auto) 1.81, Monocytes # (Auto) 0.47, Eosinophils # (Auto) 0.11, Basophils # (Auto) 0.02 08/23/16 05:21 Test 08/22/16 16:10 08/22/16 16:13 08/22/16 21:17 08/23/16 05:21 Urine Opiates Screen NEG (NEG) Urine Methadone, Qualitative NEG (NEG) Urine Barbiturates NEG (NEG) Urine Phencyclidine (PCP) Level NEG (NEG) Ur Amphetamine/Methamphetamine NEG (NEG) MDMA (Ecstasy) Screen NEG (NEG) Urine Benzodiazepines Screen NEG (NEG) Urine Cocaine Metabolite NEG (NEG) Urine Marijuana (THC) NEG (NEG) Prothrombin Time 10.3 SECONDS (9.0-12.0) Prothromb Time International Ratio 1.0 (0.9-1.1) Activated Partial Thromboplast Time 25.6 SECONDS (21.0-31.0) Partial Thromboplastin Ratio 1.0 Estimated Average Glucose 235 mg/dl Hemoglobin A1c 9.8 % (4.5-5.6) Total Bilirubin 0.3 mg/dl (0.2-1) Direct Bilirubin < 0.1 mg/dl (0-0.2) Aspartate Amino Transf (AST/SGOT) 16 U/L (15-37) Alanine Aminotransferase (ALT/SGPT) 28 U/L (12-78) Alkaline Phosphatase 72 U/L (45-117) Total Creatine Kinase 80 U/L (26-192) Creatine Kinase MB 0.8 ng/ml (0.5-3.6) Creatine Kinase MB Ratio 1.0 (0-3.0) Troponin I < 0.015 ng/ml (0-0.045) Total Protein 7.5 gm/dl (6.4-8.2) Albumin 3.7 gm/dl (3.4-5.0) Lipase 174 U/L (73-393) White Blood Count 7.40 K/uL (4.8-10.8) Red Blood Count 4.27 M/uL (4.2-5.4) Hemoglobin 12.0 g/dL (12.0-16.0) Hematocrit 35.3 % (37-47) Mean Corpuscular Volume 82.7 fL (80-100) Mean Corpuscular Hemoglobin 28.1 pg (25-34) Mean Corpuscular Hemoglobin Concent 34.0 g/dl (32-36) Platelet Count 263 K/uL (130-400) Mean Platelet Volume 10.8 fL (7.4-10.4) Neutrophils (%) (Auto) 67.2 % Lymphocytes (%) (Auto) 24.5 % Monocytes (%) (Auto) 6.4 % Eosinophils (%) (Auto) 1.5 % Basophils (%) (Auto) 0.3 % Neutrophils # (Auto) 4.98 K/uL (1.4-6.5) Lymphocytes # (Auto) 1.81 K/uL (1.2-3.4) Monocytes # (Auto) 0.47 K/uL (0.11-0.59) Eosinophils # (Auto) 0.11 K/uL (0-0.5) Basophils # (Auto) 0.02 K/uL (0-0.2) RDW Standard Deviation 43.2 fL (36.4-46.3) RDW Coefficient of Variation 14.3 % (11.5-14.5) Immature Granulocyte % (Auto) 0.1 % Immature Granulocyte # (Auto) 0.01 K/uL (0.00-0.02) Anion Gap 8.0 mmol/L (3-11) Est Creatinine Clear Calc Drug Dose 114.9 ml/min Estimated GFR () 110.8 Estimated GFR (Non- 95.6 BUN/Creatinine Ratio 13.2 (10-20) Calcium Level 8.5 mg/dl (8.5-10.1) Triglycerides Level 450 mg/dl (0-150) Cholesterol Level 223 mg/dl (0-200) HDL Cholesterol 43 mg/dl LDL Cholesterol, Calculated mg/dl VLDL Cholesterol, Calculated mg/dl Cholesterol/HDL Ratio 5.2 Test 08/23/16 11:39 08/23/16 12:13 Bedside Glucose 153 mg/dl (70-90) Last 24 Hours Test 08/22/16 16:10 08/22/16 16:11 08/22/16 16:13 08/22/16 20:25 Urine Opiates Screen NEG Urine Methadone, Qualitative NEG Urine Barbiturates NEG Urine Phencyclidine (PCP) Level NEG Ur Amphetamine/Methamphetamine NEG MDMA (Ecstasy) Screen NEG Urine Benzodiazepines Screen NEG Urine Cocaine Metabolite NEG Urine Marijuana (THC) NEG Bedside Glucose 135 mg/dl 102 mg/dl White Blood Count 9.67 K/uL Red Blood Count 4.54 M/uL Hemoglobin 12.8 g/dL Hematocrit 37.2 % Mean Corpuscular Volume 81.9 fL Mean Corpuscular Hemoglobin 28.2 pg Mean Corpuscular Hemoglobin Concent 34.4 g/dl Platelet Count 296 K/uL Mean Platelet Volume 10.5 fL Neutrophils (%) (Auto) 73.3 % Lymphocytes (%) (Auto) 19.9 % Monocytes (%) (Auto) 5.5 % Eosinophils (%) (Auto) 0.9 % Basophils (%) (Auto) 0.3 % Neutrophils # (Auto) 7.09 K/uL Lymphocytes # (Auto) 1.92 K/uL Monocytes # (Auto) 0.53 K/uL Eosinophils # (Auto) 0.09 K/uL Basophils # (Auto) 0.03 K/uL RDW Standard Deviation 42.5 fL RDW Coefficient of Variation 14.2 % Immature Granulocyte % (Auto) 0.1 % Immature Granulocyte # (Auto) 0.01 K/uL Prothrombin Time 10.3 SECONDS Prothromb Time International Ratio 1.0 Activated Partial Thromboplast Time 25.6 SECONDS Partial Thromboplastin Ratio 1.0 Sodium Level 138 mmol/L Potassium Level 4.1 mmol/L Chloride Level 102 mmol/L Carbon Dioxide Level 27 mmol/L Anion Gap 9.0 mmol/L Blood Urea Nitrogen 9 mg/dl Creatinine 0.73 mg/dl Est Creatinine Clear Calc Drug Dose 117.8 ml/min Estimated GFR () 114.5 Estimated GFR (Non- 98.8 BUN/Creatinine Ratio 12.5 Random Glucose 133 mg/dl Estimated Average Glucose 235 mg/dl Hemoglobin A1c 9.8 % Calcium Level 9.1 mg/dl Total Bilirubin 0.3 mg/dl Direct Bilirubin < 0.1 mg/dl Aspartate Amino Transf (AST/SGOT) 16 U/L Alanine Aminotransferase (ALT/SGPT) 28 U/L Alkaline Phosphatase 72 U/L Total Creatine Kinase 80 U/L Creatine Kinase MB 0.8 ng/ml Creatine Kinase MB Ratio 1.0 Troponin I < 0.015 ng/ml Total Protein 7.5 gm/dl Albumin 3.7 gm/dl Lipase 174 U/L Test 08/22/16 21:17 08/23/16 05:21 08/23/16 06:31 08/23/16 11:39 White Blood Count 7.40 K/uL Red Blood Count 4.27 M/uL Hemoglobin 12.0 g/dL Hematocrit 35.3 % Mean Corpuscular Volume 82.7 fL Mean Corpuscular Hemoglobin 28.1 pg Mean Corpuscular Hemoglobin Concent 34.0 g/dl Platelet Count 263 K/uL Mean Platelet Volume 10.8 fL Neutrophils (%) (Auto) 67.2 % Lymphocytes (%) (Auto) 24.5 % Monocytes (%) (Auto) 6.4 % Eosinophils (%) (Auto) 1.5 % Basophils (%) (Auto) 0.3 % Neutrophils # (Auto) 4.98 K/uL Lymphocytes # (Auto) 1.81 K/uL Monocytes # (Auto) 0.47 K/uL Eosinophils # (Auto) 0.11 K/uL Basophils # (Auto) 0.02 K/uL RDW Standard Deviation 43.2 fL RDW Coefficient of Variation 14.3 % Immature Granulocyte % (Auto) 0.1 % Immature Granulocyte # (Auto) 0.01 K/uL Sodium Level 139 mmol/L Potassium Level 4.0 mmol/L Chloride Level 103 mmol/L Carbon Dioxide Level 28 mmol/L Anion Gap 8.0 mmol/L Blood Urea Nitrogen 10 mg/dl Creatinine 0.75 mg/dl Est Creatinine Clear Calc Drug Dose 114.9 ml/min Estimated GFR () 110.8 Estimated GFR (Non- 95.6 BUN/Creatinine Ratio 13.2 Random Glucose 141 mg/dl Calcium Level 8.5 mg/dl Triglycerides Level 450 mg/dl Cholesterol Level 223 mg/dl HDL Cholesterol 43 mg/dl LDL Cholesterol, Calculated mg/dl VLDL Cholesterol, Calculated mg/dl Cholesterol/HDL Ratio 5.2 Bedside Glucose 143 mg/dl 153 mg/dl Test 08/23/16 11:45 Assessment & Plan 46 yo presents with acute stroke 1. L MCA stroke-no residual deficits on exam today. She is young with significant family history of strokes at an early age. Hypercoagulable workup in progress per Neuro. Cont ASA/Plavix and Liptor. TTE planned for today. BECKY to evaluate LA and for PFO on Thursday. 2. DMII-uncontrolled with A1C 9.2-cont inpatient management with ISS and Lantus , fingersticks qACHS. Currently controlled as an inpatient. Cont Lantus 10 Units qHS. 3. HTN-controlled, allow permissive HTN. Cont lisinopril per home regimen. 4. Dyslipipdemia-triglycerides are very elevated. Pt was put on Lipitor as an outpatient but was noncompliant. She is agreeable to trying statin now in the setting of stroke. Would recheck lipids as outpatient in 3 months and readdress triglycerides at that time. DVT PROPHYLAXIS -subq Lovenox CODE STATUS FULL CODE DISPO: BECKY planned for Thursday [facility] Consultants: Neuro Current Inpatient Medications: Current Inpatient Medications Medications (Trade) Dose Ordered Sig/Rudy Route Start Time Stop Time Status Last Admin Dose Admin Acetaminophen (Tylenol Tab) 650 mg Q4H PRN PO 08/22/16 17:45 09/21/16 17:44 08/23/16 00:34 650 MG Ondansetron HCl (Zofran Inj) 4 mg Q6H PRN IV 08/22/16 17:45 09/21/16 17:44 Nitroglycerin (Nitrostat Tab) 0.4 mg UD PRN SL 08/22/16 17:45 09/21/16 17:44 Aspirin (Ecotrin Tab) 81 mg QAM PO 08/23/16 09:00 09/21/16 08:59 08/23/16 07:24 81 MG Miscellaneous Information (Pharmacist Discharge Med Rec Consult) 1 ea UD PRN N/A 08/22/16 17:45 09/21/16 17:44 Glucose (Glucose 40% Gel) 15-30 GRAMS 15 GRAMS... UD PRN PO 08/22/16 18:00 09/21/16 17:59 Glucose (Glucose Chew Tab) 4-8 Tablets 4 Tabl... UD PRN PO 08/22/16 18:00 09/21/16 17:59 Dextrose (Dextrose 50% 50ML Syringe) 25-50ML OF 50% DW IV FOR... UD PRN IV 08/22/16 18:00 09/21/16 17:59 Glucagon (Glucagon Inj) 1 mg UD PRN SQ 08/22/16 18:00 09/21/16 17:59 Atorvastatin Calcium (Lipitor Tab) 40 mg DAILY PO 08/23/16 09:00 09/22/16 08:59 08/23/16 07:24 40 MG Insulin Glargine (Lantus Solostar Pen) 10 unit QPM SC 08/22/16 21:00 09/21/16 20:59 08/22/16 21:49 10 UNIT Lisinopril (Zestril Tab) 10 mg DAILY PO 08/23/16 09:00 09/22/16 08:59 08/23/16 07:24 10 MG Gadobutrol (Gadavist) 9 mmol UD PRN IV 08/22/16 19:45 08/26/16 19:44 Clopidogrel Bisulfate (plAVix TAB) 75 mg QAM PO 08/23/16 09:00 09/22/16 08:59 08/23/16 07:24 75 MG Heparin Sodium (Porcine) (Heparin Sq 5000 Unit/0.5ml) 5,000 unit Q8 SQ 08/22/16 22:00 09/21/16 21:59 08/23/16 06:25 5,000 UNIT Insulin Aspart (novoLOG ASPART) SLIDING SCALE If C... ACHS SC 08/23/16 07:00 09/22/16 06:59 08/23/16 08:42 2 UNITS Ioversol (Optiray 320) 111 ml UD PRN IV 08/23/16 12:00 08/27/16 11:59
[2016-08-23] MEDS: INSULIN GLARGINE SOLOSTAR 100 UNITS/ML 3 ML PEN SC SCH (21:03)
[2016-08-24] VITALS (10 sets, daily range): BP systolic 115–141; BP diastolic 45–70; PULSE 56–72; TEMP 36.5–36.9; O2SAT 96–99
[2016-08-24 05:38] LABS: BASO % 0.3 %; BASO ABS # 0.02 K/uL (0-0.2); COMPLETE YES; EOS % 2.2 %; HEMATOCRIT 36.2 % (37-47); IG% 0.1 %; LYMPH ABS # 1.74 K/uL (1.2-3.4); MEAN CELL VOLUME 83.6 fL (80-100); MEAN CORPUSCULAR HEMOGLOBIN 28.2 pg (25-34); MEAN CORPUSCULAR HGB CONC 33.7 g/dl (32-36); MONO % 6.8 %; NEUT % 66.6 %; PLATELET COUNT 250 K/uL (130-400); RED BLOOD COUNT 4.33 M/uL (4.2-5.4); WHITE BLOOD COUNT 7.24 K/uL (4.8-10.8)
[2016-08-24 06:11] LABS: BUN/CREATININE RATIO 12.5 (10-20); CALCIUM 8.6 mg/dl (8.5-10.1); CREATININE 0.79 mg/dl (0.60-1.20); POTASSIUM 4.2 mmol/L (3.5-5.1)
[2016-08-24] MEDS: CLOPIDOGREL BISULFATE 75 MG TAB PO SCH (07:52)
[2016-08-24] MEDS: ATORVASTATIN 40 MG TAB PO SCH (07:52)
[2016-08-24] MEDS: LISINOPRIL 10 MG TAB PO SCH (07:52)
[2016-08-24] MEDS: ASPIRIN 81 MG ECTAB PO SCH (07:52)
[2016-08-24] MEDS: ENOXAPARIN 40 MG/0.4 ML SYR SQ SCH (07:53)
[2016-08-24] MEDS: INSULIN ASPART 100 UNITS/ML 3 ML PEN SC SCH ×4 (08:18→21:24)
--- NOTE | 2016-08-24 10:25 | ECHOCARDIOGRAM REPORT ---
*NOTICE TO RECEIVING [employer] This information is strictly Confidential and protected under [place] law. [place] law prohibits you from making any further disclosure of this information unless further disclosure is expressly permitted by the written consent of the person to whom it pertains or is authorized by law. A general authorization for the release of medical or other information is not sufficient for this purpose. Hospital accepts no responsibility if the information is made available to any other person, INCLUDING THE PATIENT. Interpretation Summary * Name: NOHEMY ANGUIANO Study Date: 08/23/2016 03:23 PM BP: 131/69 mmHg * Patient Location: [facility] HR: 59 * : 1970 (M/d/yyyy) Gender: Female Height: 68 in * Age: 46 yrs Ethnicity: CA Weight: 215 lb * Ordering Physician: Brooklyn Carrasco * Performed By: Coral Castillo RDCS * * Reason For Study: Stroke * BSA: 2.1 m2 * -- Conclusions -- * The left ventricular wall motion is normal. * There is no left ventricular mural thrombus. * Left ventricular systolic function is normal. * The LV Ejection Fraction = 50-55%. * There is no significant valvualar heart disease. * There is no evidence of atrial septal defect, but resolution does not allow assessment for a patent foramen ovale. * An agitated saline contrast injection was performed for assessment of interatrial shunt, and was negative for shunt , however these images were suboptimal. * Otherwise this transthoracic echocardiogram is felt to be of high technical quality. Procedure Details * A complete two-dimensional transthoracic echocardiogram was performed (2D, M-mode, Doppler and color flow Doppler). * A saline contrast injection was performed to assess for cardiac shunting. * The injection was performed through an intravenous line in the right arm. * The attending nurse who injected the saline contrast was Alexsander Carrasco RN. * A total of 20 cc of agitated saline was given. * A contrast injection of Definity was performed to improve assessment of LV function. * Contrast was injected into an intravenous site in the right arm. * One vial of Definity ultrasound contrast was diluted in normal saline to a total volume of 10 ml. A total of '2' ml of solution was administered during imaging. * Lot # [id number] of Definity utilized for procedure. * Expiration date SEP 16. * The attending nurse who injected the contrast agent was Alexsander Carrasco RN. Left Ventricle * The left ventricle is normal in size. * There is no left ventricular mural thrombus. * There is normal left ventricular wall thickness. * Left ventricular systolic function is normal. * Ejection Fraction = 50-55%. * The left ventricular wall motion is normal. Right Ventricle * The right ventricle is normal size. * The right ventricular systolic function is normal as assessed by tricuspid annular plane systolic excursion (TAPSE) (normal >1.5 cm). Atria * The left atrial size is normal. * Right atrial size is normal. * A prominent eustachian valve is noted. * There is no evidence of atrial septal defect, but resolution does not allow assessment for a patent foramen ovale. Mitral Valve * The mitral valve is normal. * There is no mitral valve stenosis. * Significant mitral regurgitation is absent. Tricuspid Valve * The tricuspid valve is normal. * There is no tricuspid stenosis. * Significant tricuspid regurgitation is absent. * Doppler findings do not suggest pulmonary hypertension. Aortic Valve * The aortic valve is trileaflet. * Aortic stenosis is absent. * There is no significant aortic regurgitation. Pulmonic Valve * The pulmonary valve is not well seen, but the Doppler examination is normal without significant regurgitation or stenosis. Great Vessels * The aortic root and proximal ascending aorta are normal sized. Pericardium/Pleural * There is no pericardial effusion. Great Vessels * Normal inferior vena cava diameter and respiratory variation suggests normal central venous pressure. * Normal inferior vena cava size and collapsability with sniff indicates a normal right atrial pressure of 3 mmHg MMode 2D Measurements and Calculations IVSd 1.1 cm LVIDd 4.3 cm LVIDs 2.7 cm LVPWd 0.91 cm IVS/LVPW 1.2 FS 36.3 % EDV(Teich) 83.7 ml ESV(Teich) 28.2 ml EF(Teich) 66.3 % EDV(cubed) 80.3 ml ESV(cubed) 20.8 ml EF(cubed) 74.1 % LV mass(C)d 145.5 grams LV mass(C)dI 69.0 grams/m\S\2 CO(Teich) 3.6 l/min CI(Teich) 1.7 l/min/m\S\2 SV(Teich) 55.5 ml SI(Teich) 26.3 ml/m\S\2 CO(cubed) 3.8 l/min CI(cubed) 1.8 l/min/m\S\2 SV(cubed) 59.5 ml SI(cubed) 28.3 ml/m\S\2 Ao root diam 3.1 cm Ao root area 7.6 cm\S\2 ACS 2.0 cm LA dimension 3.4 cm asc Aorta Diam 2.4 cm LA/Ao 1.1 LVOT diam 2.0 cm LVOT area 3.1 cm\S\2 LVAd ap4 31.9 cm\S\2 LVLd ap4 7.9 cm EDV(MOD-sp4) 105.0 ml LVAs ap4 16.2 cm\S\2 LVLs ap4 6.0 cm ESV(MOD-sp4) 35.9 ml EF(MOD-sp4) 65.8 % LVAd ap2 32.4 cm\S\2 LVLd ap2 8.3 cm EDV(MOD-sp2) 105.0 ml LVAs ap2 18.2 cm\S\2 LVLs ap2 7.0 cm ESV(MOD-sp2) 40.1 ml EF(MOD-sp2) 61.8 % CO(MOD-sp4) 4.4 l/min CI(MOD-sp4) 2.1 l/min/m\S\2 SV(MOD-sp4) 69.1 ml SI(MOD-sp4) 32.8 ml/m\S\2 CO(MOD-sp2) 4.2 l/min CI(MOD-sp2) 2.0 l/min/m\S\2 SV(MOD-sp2) 64.9 ml SI(MOD-sp2) 30.8 ml/m\S\2 Doppler Measurements and Calculations MV E max brady 94.6 cm/sec MV A max brady 64.0 cm/sec MV E/A 1.5 MV dec time 0.25 sec Ao V2 max 125.1 cm/sec Ao max PG 6.3 mmHg Ao max PG (full) 2.4 mmHg MARLI(V,A) 2.5 cm\S\2 MARLI(V,D) 2.5 cm\S\2 LV V1 max PG 3.8 mmHg LV V1 max 98.0 cm/sec PA V2 max 103.2 cm/sec PA max PG 4.3 mmHg PA acc slope 311.1 cm/sec\S\2 PA acc time 0.20 sec PA pr(Accel) -12.90 mmHg
--- NOTE | 2016-08-24 11:43 | PROGRESS NOTE ---
DATE: 08/24/2016 SUBJECTIVE: Ms. Serrano is seen today in followup of a partial left MCA infarction. CT angiography of the head and neck confirms a 50% percent stenosis of the left internal carotid. The CTA of the head confirms high-grade stenosis, approximately 75% within the left supraclinoid internal carotid artery with near complete occlusion of the left carotid apex also seen in the left middle cerebral artery. The remainder of the intracranial vessels are patent and there is mild less than 50% stenosis of the right internal carotid. The vertebral arteries are patent. Echo shows no evidence of an atrial septal defect, but resolution does not allow for patent foramen ovale. The agitated saline contrast injection was performed for an interatrial shunt. It was negative for shunt; however, images were suboptimal. Left atrial size was normal. A prominent eustachian valve is noted. The aortic root and proximal aorta was of normal size. Hypercoagulable state workup is pending. Venous Doppler of the lower extremity was negative. She has not had any recurrent events. OBJECTIVE: VITAL SIGNS: Temperature 36.9, pulse 64, respiratory rate 18, blood pressure 122/46, and oxygen saturation 98%. GENERAL: The patient is awake and alert. She has minor word finding difficulty, although she was able to name 3 items presented to her. There are normal repetitions in 3-step commands. NEUROLOGIC: There are normal visual black. Mild right central facial weakness. Full strength. Minimal drift on the right upper extremity, but with equal rapid alternating movements. There are symmetric reflexes. Downgoing toes. 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 Recommend antiplatelet therapy with aspirin and Plavix, risk factor modification, avoidance of hypotension, vigorous treatment of her risk factors including diabetes and hyperlipidemia. Followup in hypercoagulable state workup. Prior to getting the results of the echo back, I would not have recommended a BECKY, but since the study cannot exclude a patent foramen ovale, I think a BECKY needs to be performed, especially given her family history of clotting. If the BECKY shows a patent foramen ovale, then I would recommend venous imaging of the upper extremities and abdomen and pelvis. The patient should continue to be monitored on telemetry. I did review some family history of a brother had polycythemia. The patient had several episodes of lethargy and she was being evaluated for low potassium. It sounds like there may have been some other family members who had similar episodes with low or high potassium, but the patient never went on to have any additional episodes. The patient would like a dietary consult and I have placed it. MTDD
[2016-08-24] MEDS ORDERED: ATORVASTATIN 40 MG TAB PO ONE (15:30)
--- NOTE | 2016-08-24 15:40 | Progress Note ---
Medicine Progress Note Date & Time of Visit: Aug 24, 2016 at 15:27. Subjective -pt states that her speech is still off as well as her word-finding ability -discussed the plan regarding secondary stroke prophylaxis with risk factor modifications -family was present for this conversation and are aware -TTE was inconclusive regarding PFO today -originally thought that patient would not need BECKY, however, neuro recommends this in light of her age and family history -tolerating PO -ambulating without difficulty -evaluated and cleared by both PT and OT Objective Last 8 Hrs Date Time Temp Pulse Resp B/P Pulse Ox O2 Delivery O2 Flow Rate FiO2 08/24/16 12:01 96 Room Air 08/24/16 12:00 36.9 56 18 122/66 98 Room Air 08/24/16 08:01 96 Room Air 08/24/16 08:01 96 Room Air 08/24/16 07:39 36.9 64 18 122/46 98 Room Air Physical Exam: GEN: WNWD, in no acute distress, alert and appropriate HEENT: NC/AT, normal sclerae, EOMI CARDIO: reg rate, S1/2 heard without m/g/r LUNGS: CTA bilaterally, no crackles, rales or wheezes, good diaphragmatic excursion ABD: soft, non-tender, non-distended, no rebound or guarding, +BS EXTREMITY: no LE swelling or edema, extremities are warm and well-perfused NEURO: no gross focal deficits MUSC: ambulatory SKIN: warm and dry Laboratory Results: 08/24/16 05:11 Red Blood Count 4.33, Mean Corpuscular Volume 83.6, Mean Corpuscular Hemoglobin 28.2, Mean Corpuscular Hemoglobin Concent 33.7, Mean Platelet Volume 11.0, Neutrophils (%) (Auto) 66.6, Lymphocytes (%) (Auto) 24.0, Monocytes (%) (Auto) 6.8, Eosinophils (%) (Auto) 2.2, Basophils (%) (Auto) 0.3, Neutrophils # (Auto) 4.82, Lymphocytes # (Auto) 1.74, Monocytes # (Auto) 0.49, Eosinophils # (Auto) 0.16, Basophils # (Auto) 0.02 08/24/16 05:11 Test 08/24/16 05:11 08/24/16 11:23 White Blood Count 7.24 K/uL (4.8-10.8) Red Blood Count 4.33 M/uL (4.2-5.4) Hemoglobin 12.2 g/dL (12.0-16.0) Hematocrit 36.2 % (37-47) Mean Corpuscular Volume 83.6 fL (80-100) Mean Corpuscular Hemoglobin 28.2 pg (25-34) Mean Corpuscular Hemoglobin Concent 33.7 g/dl (32-36) Platelet Count 250 K/uL (130-400) Mean Platelet Volume 11.0 fL (7.4-10.4) Neutrophils (%) (Auto) 66.6 % Lymphocytes (%) (Auto) 24.0 % Monocytes (%) (Auto) 6.8 % Eosinophils (%) (Auto) 2.2 % Basophils (%) (Auto) 0.3 % Neutrophils # (Auto) 4.82 K/uL (1.4-6.5) Lymphocytes # (Auto) 1.74 K/uL (1.2-3.4) Monocytes # (Auto) 0.49 K/uL (0.11-0.59) Eosinophils # (Auto) 0.16 K/uL (0-0.5) Basophils # (Auto) 0.02 K/uL (0-0.2) RDW Standard Deviation 43.4 fL (36.4-46.3) RDW Coefficient of Variation 14.2 % (11.5-14.5) Immature Granulocyte % (Auto) 0.1 % Immature Granulocyte # (Auto) 0.01 K/uL (0.00-0.02) Anion Gap 7.0 mmol/L (3-11) Est Creatinine Clear Calc Drug Dose 109.1 ml/min Estimated GFR () 104.0 Estimated GFR (Non- 89.8 BUN/Creatinine Ratio 12.5 (10-20) Calcium Level 8.6 mg/dl (8.5-10.1) Bedside Glucose 188 mg/dl (70-90) Last 24 Hours Test 08/23/16 16:12 08/23/16 20:44 08/24/16 05:11 08/24/16 06:46 Bedside Glucose 156 mg/dl 150 mg/dl 159 mg/dl White Blood Count 7.24 K/uL Red Blood Count 4.33 M/uL Hemoglobin 12.2 g/dL Hematocrit 36.2 % Mean Corpuscular Volume 83.6 fL Mean Corpuscular Hemoglobin 28.2 pg Mean Corpuscular Hemoglobin Concent 33.7 g/dl Platelet Count 250 K/uL Mean Platelet Volume 11.0 fL Neutrophils (%) (Auto) 66.6 % Lymphocytes (%) (Auto) 24.0 % Monocytes (%) (Auto) 6.8 % Eosinophils (%) (Auto) 2.2 % Basophils (%) (Auto) 0.3 % Neutrophils # (Auto) 4.82 K/uL Lymphocytes # (Auto) 1.74 K/uL Monocytes # (Auto) 0.49 K/uL Eosinophils # (Auto) 0.16 K/uL Basophils # (Auto) 0.02 K/uL RDW Standard Deviation 43.4 fL RDW Coefficient of Variation 14.2 % Immature Granulocyte % (Auto) 0.1 % Immature Granulocyte # (Auto) 0.01 K/uL Sodium Level 139 mmol/L Potassium Level 4.2 mmol/L Chloride Level 104 mmol/L Carbon Dioxide Level 28 mmol/L Anion Gap 7.0 mmol/L Blood Urea Nitrogen 10 mg/dl Creatinine 0.79 mg/dl Est Creatinine Clear Calc Drug Dose 109.1 ml/min Estimated GFR () 104.0 Estimated GFR (Non- 89.8 BUN/Creatinine Ratio 12.5 Random Glucose 165 mg/dl Calcium Level 8.6 mg/dl Test 08/24/16 11:23 Bedside Glucose 188 mg/dl Assessment & Plan 46 yo presents with acute stroke 1. L MCA stroke-no residual deficits on exam today. She is young with significant family history of strokes at an early age. Hypercoagulable workup in progress per Neuro. Cont ASA/Plavix and Liptor. Will increase Lipitor to 80mg daily and add fish oil with for additional risk factor reduction in this young female with vascular disease and uncontrolled DMII. TTE was inconclusive regarding the presence of a PFO, therefore, Neurology would like to press forward with the BECKY tomorrow. NPO p MN x meds. 2. DMII-uncontrolled with A1C 9.2-cont inpatient management with ISS and Lantus , fingersticks qACHS. Currently around goal as an inpatient. Cont Lantus 10 Units qHS. 3. HTN-controlled, allow permissive HTN. Cont lisinopril per home regimen. 4. Dyslipipdemia-triglycerides are very elevated. Pt was put on Lipitor as an outpatient but was noncompliant. She is agreeable to trying statin now in the setting of stroke. Would recheck lipids as outpatient in 3 months and readdress triglycerides at that time. For now continue with Lipitor 80mg and Fish oil script at discharge. DVT PROPHYLAXIS -subq Lovenox CODE STATUS FULL CODE DISPO: BECKY planned for tomorrow. Alexandria Le DO [facility] Hospitalist Consultants: Neuro Current Inpatient Medications: Current Inpatient Medications Medications (Trade) Dose Ordered Sig/Rudy Route Start Time Stop Time Status Last Admin Dose Admin Acetaminophen (Tylenol Tab) 650 mg Q4H PRN PO 08/22/16 17:45 09/21/16 17:44 08/23/16 00:34 650 MG Ondansetron HCl (Zofran Inj) 4 mg Q6H PRN IV 08/22/16 17:45 09/21/16 17:44 Nitroglycerin (Nitrostat Tab) 0.4 mg UD PRN SL 08/22/16 17:45 09/21/16 17:44 Aspirin (Ecotrin Tab) 81 mg QAM PO 08/23/16 09:00 09/21/16 08:59 08/24/16 07:52 81 MG Miscellaneous Information (Pharmacist Discharge Med Rec Consult) 1 ea UD PRN N/A 08/22/16 17:45 09/21/16 17:44 Glucose (Glucose 40% Gel) 15-30 GRAMS 15 GRAMS... UD PRN PO 08/22/16 18:00 09/21/16 17:59 Glucose (Glucose Chew Tab) 4-8 Tablets 4 Tabl... UD PRN PO 08/22/16 18:00 09/21/16 17:59 Dextrose (Dextrose 50% 50ML Syringe) 25-50ML OF 50% DW IV FOR... UD PRN IV 08/22/16 18:00 09/21/16 17:59 Glucagon (Glucagon Inj) 1 mg UD PRN SQ 08/22/16 18:00 09/21/16 17:59 Insulin Glargine (Lantus Solostar Pen) 10 unit QPM SC 08/22/16 21:00 09/21/16 20:59 08/23/16 21:03 10 UNIT Lisinopril (Zestril Tab) 10 mg DAILY PO 08/23/16 09:00 09/22/16 08:59 08/24/16 07:52 10 MG Gadobutrol (Gadavist) 9 mmol UD PRN IV 08/22/16 19:45 08/26/16 19:44 Clopidogrel Bisulfate (plAVix TAB) 75 mg QAM PO 08/23/16 09:00 09/22/16 08:59 08/24/16 07:52 75 MG Insulin Aspart (novoLOG ASPART) SLIDING SCALE If C... ACHS SC 08/23/16 07:00 09/22/16 06:59 08/24/16 11:00 5 UNITS Ioversol (Optiray 320) 111 ml UD PRN IV 08/23/16 12:00 08/27/16 11:59 Enoxaparin Sodium (Lovenox Inj) 40 mg QAM SQ 08/24/16 09:00 09/23/16 08:59 08/24/16 07:53 40 MG Atorvastatin Calcium (Lipitor Tab) 40 mg ONE PO 08/24/16 15:30 09/23/16 15:29 UNV Atorvastatin Calcium (Lipitor Tab) 80 mg QAM PO 08/25/16 09:00 09/24/16 08:59 UNV Fish Oil ([place]-3 (Purified Fish Oil) Cap) 1 gm BID PO 08/24/16 21:00 09/23/16 20:59 UNV
[2016-08-24] MEDS: OMEGA-3 (PURIFIED FISH OIL) 1 GM CAP PO SCH (20:07)
[2016-08-24] MEDS: INSULIN GLARGINE SOLOSTAR 100 UNITS/ML 3 ML PEN SC SCH (21:23)
[2016-08-25] VITALS (7 sets, daily range): BP systolic 117–137; BP diastolic 46–70; PULSE 62–91; TEMP 36.5–36.8; O2SAT 95–97; Ht 172.7 cm; Wt 96.5 kg
[2016-08-25 07:26] LABS: BASO % 0.4 %; BASO ABS # 0.04 K/uL (0-0.2); COMPLETE YES; EOS % 1.3 %; HEMATOCRIT 41.5 % (37-47); IG% 0.2 %; LYMPH % 19.3 %; LYMPH ABS # 1.96 K/uL (1.2-3.4); MEAN CELL VOLUME 83.8 fL (80-100); MEAN CORPUSCULAR HEMOGLOBIN 28.7 pg (25-34); MEAN CORPUSCULAR HGB CONC 34.2 g/dl (32-36); MEAN PLATELET VOLUME 10.8 fL (7.4-10.4); MONO % 5.5 %; NEUT % 73.3 %; PLATELET COUNT 333 K/uL (130-400); RED BLOOD COUNT 4.95 M/uL (4.2-5.4); WHITE BLOOD COUNT 10.16 K/uL (4.8-10.8)
[2016-08-25 08:00] LABS: BUN/CREATININE RATIO 12.8 (10-20); CALCIUM 9.3 mg/dl (8.5-10.1); CREATININE 0.92 mg/dl (0.60-1.20); POTASSIUM 4.3 mmol/L (3.5-5.1)
[2016-08-25] MEDS: ASPIRIN 81 MG ECTAB PO SCH (08:37)
[2016-08-25] MEDS: LISINOPRIL 10 MG TAB PO SCH (08:37)
[2016-08-25] MEDS: ATORVASTATIN 40 MG TAB PO SCH (08:37)
[2016-08-25] MEDS: OMEGA-3 (PURIFIED FISH OIL) 1 GM CAP PO SCH ×2 (08:37→20:15)
[2016-08-25] MEDS: ENOXAPARIN 40 MG/0.4 ML SYR SQ SCH (08:38)
[2016-08-25] MEDS: INSULIN ASPART 100 UNITS/ML 3 ML PEN SC SCH ×4 (08:50→20:16)
[2016-08-25] MEDS: CLOPIDOGREL BISULFATE 75 MG TAB PO SCH (08:51)
--- NOTE | 2016-08-25 11:00 | Cardiology Progress Note ---
Cardiology Progress Note Date of Service Aug 25, 2016. Cardiology Progress Note A repeat high quality transthoracic echocardiogram focused on evaluation of the interatrial septum was performed at the bedside under my supervision. The interatrial septum was intact. There is no evidence of a clinically relevant interatrial shunt. Transesophageal echocardiogram is therefore been canceled, and the patient's diet has been advanced.
--- NOTE | 2016-08-25 13:50 | ECHOCARDIOGRAM REPORT ---
*NOTICE TO RECEIVING CONSTITUTION PARTY AGENCY This information is strictly Confidential and protected under [place] law. [place] law prohibits you from making any further disclosure of this information unless further disclosure is expressly permitted by the written consent of the person to whom it pertains or is authorized by law. A general authorization for the release of medical or other information is not sufficient for this purpose. Hospital accepts no responsibility if the information is made available to any other person, INCLUDING THE PATIENT. Interpretation Summary * Name: NOHEMY ANGUIANO Study Date: 08/25/2016 10:25 AM BP: 137/70 mmHg * Patient Location: C.2E\S\E210\S\1 HR: 91 * : 1970 (M/d/yyyy) Gender: Female Height: 68 in * Age: 46 yrs Ethnicity: CA Weight: 214 lb * Ordering Physician: Chase Magallanes DO, [facility] * Performed By: Nannette Busby * * Reason For Study: STROKE- FOLLOW UP * BSA: 2.1 m2 * -- Conclusions - * The study was of technical good quality. * The interatrial septum is intact with no evidence for an atrial septal defect. Procedure Details * A saline contrast injection was performed to assess for cardiac shunting. * The injection was performed through an intravenous line in the right arm. * The attending nurse who injected the saline contrast was VASQUEZ ORR RN. * A total of 50 cc of agitated saline was given. Atria * The left atrial size is normal. * Right atrial size is normal. * The interatrial septum is intact with no evidence for an atrial septal defect.
--- NOTE | 2016-08-25 15:39 | Neurology Progress Notes ---
Neurology Progress Note Date of Service Aug 25, 2016. Lisbeth Israel is a 46 year old female with PMH of DM 2, HTN, DL. She has had persistent neurologic symptoms for the past 2 months which include intermittent R hand numbness as well as difficulty finding words lasting around 30 minutes. She also started having R sided facial numbness that was associated with R eye "pressure". Her mother also noted she was having some garbled speech. Her grandmother had a stroke in her 40s and her father suffered a stroke at the age of 60. She has uncontrolled DM2, HTN and DL due to non compliance issues. Her head CT showed a nonspecific small hypodense patch in the L parietal area without evidence of hemorrhage. Objective Date Time Temp Pulse Resp B/P Pulse Ox O2 Delivery O2 Flow Rate FiO2 08/25/16 12:00 Room Air 08/25/16 11:58 36.6 64 16 127/56 96 Room Air 08/25/16 08:00 Room Air 08/25/16 07:31 36.8 91 16 137/70 97 Room Air 08/25/16 04:00 Room Air 08/25/16 03:49 36.8 62 16 118/46 96 Room Air 08/25/16 00:01 Room Air 08/24/16 23:34 36.8 59 16 129/45 97 Room Air 08/24/16 20:00 Room Air 08/24/16 19:42 36.8 68 18 140/55 99 Room Air 08/24/16 16:11 36.8 64 16 115/70 98 Room Air 08/24/16 16:04 96 Room Air Last 24 Hours Test 08/24/16 16:09 08/24/16 20:11 08/25/16 07:15 08/25/16 11:11 Bedside Glucose 123 mg/dl 162 mg/dl 179 mg/dl 134 mg/dl White Blood Count 10.16 K/uL Red Blood Count 4.95 M/uL Hemoglobin 14.2 g/dL Hematocrit 41.5 % Mean Corpuscular Volume 83.8 fL Mean Corpuscular Hemoglobin 28.7 pg Mean Corpuscular Hemoglobin Concent 34.2 g/dl Platelet Count 333 K/uL Mean Platelet Volume 10.8 fL Neutrophils (%) (Auto) 73.3 % Lymphocytes (%) (Auto) 19.3 % Monocytes (%) (Auto) 5.5 % Eosinophils (%) (Auto) 1.3 % Basophils (%) (Auto) 0.4 % Neutrophils # (Auto) 7.45 K/uL Lymphocytes # (Auto) 1.96 K/uL Monocytes # (Auto) 0.56 K/uL Eosinophils # (Auto) 0.13 K/uL Basophils # (Auto) 0.04 K/uL RDW Standard Deviation 43.4 fL RDW Coefficient of Variation 14.1 % Immature Granulocyte % (Auto) 0.2 % Immature Granulocyte # (Auto) 0.02 K/uL Sodium Level 137 mmol/L Potassium Level 4.3 mmol/L Chloride Level 103 mmol/L Carbon Dioxide Level 25 mmol/L Anion Gap 9.0 mmol/L Blood Urea Nitrogen 12 mg/dl Creatinine 0.92 mg/dl Est Creatinine Clear Calc Drug Dose 93.3 ml/min Estimated GFR () 86.5 Estimated GFR (Non- 74.7 BUN/Creatinine Ratio 12.8 Random Glucose 185 mg/dl Calcium Level 9.3 mg/dl Imaging: repeat TTE today- * The study was of technical good quality. * The interatrial septum is intact with no evidence for an atrial septal defect. Exam: Physical Exam: Constitutional: appearance nourished, healthy and normal Ears, Nose, Mouth and Throat: mucous membranes moist, no injection and skin normal, eyes normal Cardiovascular: normal S-1 and S-2 and regular rate and rhythm Respiratory: clear to auscultation (CTA) and no rales, rhonchi or wheeze Musculoskeletal: no peripheral edema Skin: no stigmata of neurocutaneous disease noted and normal and intact Eyes: extraocular muscles intact (EOMI) and pupils equal, round and reactive to light (PERRL) NEUROLOGIC EXAMINATION: Mental status: Alert and interactive Oriented to full date and location Oriented to person Speech fluent with no evidence of aphasia, word 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 Gait normal: with steady with steps, base, turning, and tandem gait. Motor: Negative for pronator drift of out stretched arms with eyes closed. Strength: biceps triceps intrinsic bilaterally 5/5, hip flex plantar flex ext 5/5 bilaterally Current Inpatient Medications Medications (Trade) Dose Ordered Sig/Rudy Route Start Time Stop Time Status Last Admin Dose Admin Acetaminophen (Tylenol Tab) 650 mg Q4H PRN PO 08/22/16 17:45 09/21/16 17:44 08/23/16 00:34 650 MG Ondansetron HCl (Zofran Inj) 4 mg Q6H PRN IV 08/22/16 17:45 09/21/16 17:44 Nitroglycerin (Nitrostat Tab) 0.4 mg UD PRN SL 08/22/16 17:45 09/21/16 17:44 Aspirin (Ecotrin Tab) 81 mg QAM PO 08/23/16 09:00 09/21/16 08:59 08/25/16 08:37 81 MG Miscellaneous Information (Pharmacist Discharge Med Rec Consult) 1 ea UD PRN N/A 08/22/16 17:45 09/21/16 17:44 Glucose (Glucose 40% Gel) 15-30 GRAMS 15 GRAMS... UD PRN PO 08/22/16 18:00 09/21/16 17:59 Glucose (Glucose Chew Tab) 4-8 Tablets 4 Tabl... UD PRN PO 08/22/16 18:00 09/21/16 17:59 Dextrose (Dextrose 50% 50ML Syringe) 25-50ML OF 50% DW IV FOR... UD PRN IV 08/22/16 18:00 09/21/16 17:59 Glucagon (Glucagon Inj) 1 mg UD PRN SQ 08/22/16 18:00 09/21/16 17:59 Insulin Glargine (Lantus Solostar Pen) 10 unit QPM SC 08/22/16 21:00 09/21/16 20:59 08/24/16 21:23 10 UNIT Lisinopril (Zestril Tab) 10 mg DAILY PO 08/23/16 09:00 09/22/16 08:59 08/25/16 08:37 10 MG Gadobutrol (Gadavist) 9 mmol UD PRN IV 08/22/16 19:45 08/26/16 19:44 Clopidogrel Bisulfate (plAVix TAB) 75 mg QAM PO 08/23/16 09:00 09/22/16 08:59 08/25/16 08:51 75 MG Insulin Aspart (novoLOG ASPART) SLIDING SCALE If C... ACHS SC 08/23/16 07:00 09/22/16 06:59 08/25/16 08:50 1 UNITS Ioversol (Optiray 320) 111 ml UD PRN IV 08/23/16 12:00 08/27/16 11:59 Enoxaparin Sodium (Lovenox Inj) 40 mg QAM SQ 08/24/16 09:00 09/23/16 08:59 08/25/16 08:38 40 MG Atorvastatin Calcium (Lipitor Tab) 80 mg QAM PO 08/25/16 09:00 09/24/16 08:59 08/25/16 08:37 80 MG Fish Oil ([place]-3 (Purified Fish Oil) Cap) 1 gm BID PO 08/24/16 21:00 09/23/16 20:59 08/25/16 08:37 1 GM Impression 46 year old female with left MCA infarct, mina grade stenosis left supraclinoid MCV. Plan 1. optimize both DM and DL control was not previously on lipid lowering agent 2. blood pressure control 3. will need speech therapy as out patient 4. hyper coag work up -pending 5. sed rate WNL , RPR-negative, RADHA-still pending 6. PT/OT speech for discharge needs 7. plavix 75 mg and aspirin 81 mg x 3 months then will assess at outpatient visit follow up with neurology 3-4 weeks, Marissa Salcedo PAC, schedule I have seen and discussed above patient with Dr Marissa Randhawa, neurology Pt seen and examined, R facial droop improving, still with mild R drift. TTE on repeat no septal defect or shunt. Plan antiplt tx, risk factor mod. Will have interventional radiology review films to see if they have anything to offer should the pt continue to have sx inspite of medical tx. RUI Randhawa MD Addendum, approx [address] Kirby, pt family reported LEFT face was twitching, thereafter pt co recurrent tingling R face and arm. had had ongoing mild bitemp headache. Pt BP and glucose were noncontributory, CT head ( reviewed) showed evolutionary changes of prev described stroke. I advised heparin without bolus and EEG although difficult to determine relationship btwn L face twitching and recent stroke. MRI brain reorderedMay need heparin and antiplt tx together short term until things cool down. Would definitely avoid hypotension in the pt and certainly if more episodes would hold her antihtn, give NS and place HOB in reverse trendelenberg. RUI Randhawa MD
[2016-08-25] MEDS ORDERED: LPT40 PO (17:26)
[2016-08-25] MEDS ORDERED: NVLGIPEN SC (17:26)
[2016-08-25] MEDS ORDERED: INSDGIPEN SC (17:26)
[2016-08-25] MEDS ORDERED: OMG3 PO (17:26)
[2016-08-25] MEDS ORDERED: ASPEC81 PO (17:26)
[2016-08-25] MEDS ORDERED: PLV75 PO (17:26)
--- NOTE | 2016-08-25 17:32 | Discharge Instructions ---
Discharge Instructions Date of Service Aug 25, 2016. Admission Reason for Admission: Stroke Discharge Discharge Diagnosis / Problem: CVA Discharge Goals Goal(s): Decrease discomfort, Improve function Activity Recommendations Activity Limitations: resume your previous activity . Instructions / Follow-Up Instructions / Follow-Up FOLLOWUP WITH FAMILY DOCTOR ON July AT 2:50PM. FOLLOWUP WITH NEUROLOGY DR.Kathleen Randhawa IN 3-4 WEEKS. NEW MEDICATION: ASPIRIN PLAVIX LIPITOR FISH OIL NOVOLOG SLIDING SCALE FOR DIABETES. PLEASE CHECK BLOOD SUGARS FOUR TIMES DAILY AND WRITE THE READINGS IN A LOG BOOK AND TO SHOW THE READINGS TO FAMILY DOCTOR FOR FURTHER ADJUSTMENTS OF INSULIN. DIABETES,BLOOD PRESSURE AND CHOLESTEROL CLOSE FOLLOWUP WITH FAMILY DOCTOR. Risk Factors for Stroke: You can reduce your chances of stroke by working with your medical provider to adopt a healthy lifestyle. Some specific ways to lower your chance of stroke are: * If you are a smoker, now is the time to stop smoking cigarettes * If you are diabetic, improve the control of your blood sugars * Avoid excessive amounts of alcohol * Control high blood pressure * Lose weight if you are overweight * Be sure to lead an active lifestyle * Eat a healthy diet low in salt, cholesterol and fat You should know about other risk factors for stroke that you are unable to control. These include: * Age 55 years or older * Male gender * Certain racial groups: , or / * Family History of Stroke, Mini stroke or Heart Attack * Sickle Cell Disease Follow Up: It is important for you to keep your follow up appointments with your medical provider. Current Hospital Diet Patient's current hospital diet: AHA Diet (Heart Healthy), Diabetes Type 2 Diet Laboratory Results Hemoglobin A1c Test 08/22/16 16:13 Range/Units Estimated Average Glucose 235 mg/dl Hemoglobin A1c 9.8 H 4.5-5.6 % Lipid Panel Test 08/23/16 05:21 Range/Units Triglycerides Level 450 H 0-150 mg/dl Cholesterol Level 223 H 0-200 mg/dl HDL Cholesterol 43 mg/dl Cholesterol/HDL Ratio 5.2 LDL Cholesterol, Calculated mg/dl Medical Emergencies . Who to Call and When: Medical Emergencies: Call 911 immediately if you experience any of the following warning signs and symptoms of Stroke: * Sudden numbness or weakness of the face, arm or leg, especially on one side of the body * Sudden confusion, trouble speaking or understanding * Sudden trouble seeing in one or both eyes * Sudden trouble walking, dizziness, loss of balance or coordination * Sudden severe headache with no cause Do not delay calling 911 if you experience any warning signs or symptoms of a stroke. Delay in seeking medical attention may affect what treatments can be given to you. . Non-Emergent Contact . . "Provider Documentation" section prepared by Mike Kirby.
--- NOTE | 2016-08-25 18:36 | DIAGNOSTIC IMAGING REPORT ---
HEAD CT NONCONTRAST CT DOSE: 537.48 mGy.cm HISTORY: Mental status change left facial numbness TECHNIQUE: Multiaxial CT images of the head were performed without the use of intravenous contrast. Comparison: MRI brain dated 08/22/2016 Findings: The paranasal sinuses and mastoid air cells are clear. Findings of the left occipital subacute infarct which has been described previously. Clinical left frontoparietal changes also described previously. No acute or interval process. No evidence for acute intracranial hemorrhage. Impression: Small microinfarcts in the patient's prior MRI study now appear to be vaguely identified on CT. No evidence for new or interval process on CT criteria Electronically signed by: Malachi Tubbs M.D. 08/25/2016 6:35 PM Dictated Date/Time: 08/25/2016 6:32 PM
--- NOTE | 2016-08-25 19:33 | Progress Note ---
Internal Med Progress Note Date of Service: Aug 25, 2016. Provider Documentation: SUBJECTIVE: speech clear no weakness ambulating fine was to be discharged home but family complained patient had some twitching on left side of face and later patient complained of some numbness in right side of face repeat ct head negative for acute findings Patient has some tingling sensations in her right arm and below right eye but getting better now OBJECTIVE: Vital Signs-as noted below Exam: General-alert and oriented x 3 Not in distress ENT-normal hearing Neck-no neck masses Lungs-cta b/l no wheezing no crackles Heart-s1 and s2 heard regular rate and rhythm no murmurs' Abdomen-soft bowel sounds present non tender no distension Extremities-no edema no erythema Neuro-alert and awake and oriented speech clear power 5/5 in all extremities sensations intact gait normal Lab data as noted below. ASSESSMENT & PLAN: 46 yo presents with acute stroke 1. L MCA stroke-no residual deficits on exam today. Significant family history of strokes at an early age. Hypercoagulable workup in progress per Neuro. On ASA/Plavix and Liptor. Added fish oil with for additional risk factor reduction in this young female with vascular disease and uncontrolled DMII. Echo no pfo. symptoms recurred today evening which are Getting better now and repeat ct head no acute findings plan for repeat MRI iv heparin without bolus and EEG study as patient family complained of facial twitching. close monitor in pcu. 2. DMII-uncontrolled with A1C 9.2-cont inpatient management with ISS and Lantus , fingersticks qACHS. Plan to discharge on lantus and iss and metformin. Will monitor. 3. HTN-controlled, allow permissive HTN. Cont lisinopril per home regimen. 4. Dyslipidemia-triglycerides are very elevated. Pt was put on Lipitor as an outpatient but was noncompliant. Agrres to be on statins now. To be discharged on Lipitor 80mg and Fish oil and close followup with PCP. DVT PROPHYLAXIS iv heparin DISPOSITION monitor in tele to be determined Vital Signs: Date Time Temp Pulse Resp B/P Pulse Ox O2 Delivery O2 Flow Rate FiO2 08/25/16 16:00 Room Air 08/25/16 16:00 36.5 71 18 132/56 97 Room Air 08/25/16 12:00 Room Air 08/25/16 11:58 36.6 64 16 127/56 96 Room Air 08/25/16 08:00 Room Air 08/25/16 07:31 36.8 91 16 137/70 97 Room Air 08/25/16 04:00 Room Air 08/25/16 03:49 36.8 62 16 118/46 96 Room Air 08/25/16 00:01 Room Air 08/24/16 23:34 36.8 59 16 129/45 97 Room Air 08/24/16 20:00 Room Air 08/24/16 19:42 36.8 68 18 140/55 99 Room Air Lab Results: Results Past 24 Hours Test 08/24/16 20:11 08/25/16 07:15 08/25/16 11:11 08/25/16 16:07 Range/Units Bedside Glucose 162 179 134 134 70-90 mg/dl White Blood Count 10.16 4.8-10.8 K/uL Red Blood Count 4.95 4.2-5.4 M/uL Hemoglobin 14.2 12.0-16.0 g/dL Hematocrit 41.5 37-47 % Mean Corpuscular Volume 83.8 80-100 fL Mean Corpuscular Hemoglobin 28.7 25-34 pg Mean Corpuscular Hemoglobin Concent 34.2 32-36 g/dl Platelet Count 333 130-400 K/uL Mean Platelet Volume 10.8 7.4-10.4 fL Neutrophils (%) (Auto) 73.3 % Lymphocytes (%) (Auto) 19.3 % Monocytes (%) (Auto) 5.5 % Eosinophils (%) (Auto) 1.3 % Basophils (%) (Auto) 0.4 % Neutrophils # (Auto) 7.45 1.4-6.5 K/uL Lymphocytes # (Auto) 1.96 1.2-3.4 K/uL Monocytes # (Auto) 0.56 0.11-0.59 K/uL Eosinophils # (Auto) 0.13 0-0.5 K/uL Basophils # (Auto) 0.04 0-0.2 K/uL RDW Standard Deviation 43.4 36.4-46.3 fL RDW Coefficient of Variation 14.1 11.5-14.5 % Immature Granulocyte % (Auto) 0.2 % Immature Granulocyte # (Auto) 0.02 0.00-0.02 K/uL Sodium Level 137 136-145 mmol/L Potassium Level 4.3 3.5-5.1 mmol/L Chloride Level 103 98-107 mmol/L Carbon Dioxide Level 25 21-32 mmol/L Anion Gap 9.0 3-11 mmol/L Blood Urea Nitrogen 12 7-18 mg/dl Creatinine 0.92 0.60-1.20 mg/dl Est Creatinine Clear Calc Drug Dose 93.3 ml/min Estimated GFR () 86.5 Estimated GFR (Non- 74.7 BUN/Creatinine Ratio 12.8 10-20 Random Glucose 185 70-99 mg/dl Calcium Level 9.3 8.5-10.1 mg/dl
[2016-08-25] MEDS: INSULIN GLARGINE SOLOSTAR 100 UNITS/ML 3 ML PEN SC SCH (20:15)
[2016-08-25] MEDS: HEPARIN 25,000 UNIT/500ML D5W 500 ML IV PRN (20:17)
[2016-08-26] VITALS: BP 131/54; PULSE 63; TEMP 36.4; O2SAT 98
[2016-08-26 02:46] LABS: PARTIAL THROMBOPLASTIN RATIO 1.5
[2016-08-26] MEDS ORDERED: HEPARIN IV BOLUS 6,000 UNIT in SYRINGE 0 ML IV STA (03:49)
[2016-08-26] MEDS: HEPARIN 25,000 UNIT/500ML D5W 500 ML IV PRN ×2 (04:40→11:51)
[2016-08-26 05:00] VITALS: BP 124/60; PULSE 65; TEMP 36.6; O2SAT 97
[2016-08-26 07:58] VITALS: BP 116/60; PULSE 75; TEMP 36.8; O2SAT 96
[2016-08-26 08:00] VITALS: O2SAT 96
[2016-08-26] MEDS: INSULIN ASPART 100 UNITS/ML 3 ML PEN SC SCH ×2 (09:16→11:46)
[2016-08-26] MEDS: CLOPIDOGREL BISULFATE 75 MG TAB PO SCH (09:17)
[2016-08-26] MEDS: OMEGA-3 (PURIFIED FISH OIL) 1 GM CAP PO SCH (09:17)
[2016-08-26] MEDS: ATORVASTATIN 40 MG TAB PO SCH (09:17)
[2016-08-26] MEDS: ASPIRIN 81 MG ECTAB PO SCH (09:17)
[2016-08-26] MEDS: LISINOPRIL 10 MG TAB PO SCH (09:18)
--- NOTE | 2016-08-26 11:03 | Discharge Instructions ---
Discharge Instructions Date of Service Aug 26, 2016. Admission Reason for Admission: Stroke Discharge Discharge Diagnosis / Problem: CVA Discharge Goals Goal(s): Decrease discomfort, Improve function Activity Recommendations Activity Level: Up Ad Jaida, Ambulates in room Therapies: Physical Therapy, Occupational Therapy . Additional Information Patient informed of condition: Yes Advance Directives: Yes DNR: No Level of Care: Other (ACUTE CARE FACILITY) Communicable Disease: No Prognosis: Stable Pastrana Catheter: No Instructions / Follow-Up Instructions / Follow-Up FOLLOWUP PER YAEL NUNEZ RECOMMENDATIONS ON DISCHARGE Current Hospital Diet Patient's current hospital diet: AHA Diet (Heart Healthy), Diabetes Type 2 Diet Discharge Diet Recommended Diet: AHA Diet (Heart Healthy), Diabetes Type 2 Diet Pending Studies Studies pending at discharge: no Physician Orders On Transfer Special Precautions: FALL AND ASPIRATION PRECAUTIONS IV Therapy: IV HEPARIN Vital Signs: EVERY 8HRS Additional Orders: PLEASE REFER TO MEDICATION RECONCILIATION FOR ACCURATE MEDICATION LIST Laboratory Results Hemoglobin A1c Test 08/22/16 16:13 Range/Units Estimated Average Glucose 235 mg/dl Hemoglobin A1c 9.8 H 4.5-5.6 % Lipid Panel Test 08/23/16 05:21 Range/Units Triglycerides Level 450 H 0-150 mg/dl Cholesterol Level 223 H 0-200 mg/dl HDL Cholesterol 43 mg/dl Cholesterol/HDL Ratio 5.2 LDL Cholesterol, Calculated mg/dl Medical Emergencies . Who to Call and When: Medical Emergencies: If at any time you feel your situation is an emergency, please call 911 immediately. . Non-Emergent Contact Non-Emergency issues call your: Primary Care Provider . . "Provider Documentation" section prepared by Mike Kirby. Core Measure Problem Core Measures: Stroke Stroke Core Measures Reason no t-PA for Stroke: Treatment not indicated Reason no antithrom by day 2: Treatment provided - N/A Reason no antithrom at D/C: Treatment provided - N/A Reason no statin at D/C: Treatment provided - N/A Reason no anticoag w/a fib: Treatment not indicated
[2016-08-26 11:31] LABS: PARTIAL THROMBOPLASTIN RATIO 2.9
[2016-08-26 12:00] VITALS: BP 140/49; PULSE 74; TEMP 36.8; O2SAT 100; O2SAT 96
--- NOTE | 2016-08-26 19:22 | Progress Note ---
Internal Med Progress Note Date of Service: Aug 26, 2016. Provider Documentation: SUBJECTIVE: speech clear ambulating fine but because of on and off tingliness on right face and arm patient and family ; likes to be transferred to tertiary care center. OBJECTIVE: Vital Signs-as noted below Exam: General-alert and oriented x 3 Not in distress ENT-normal hearing Neck-no neck masses Lungs-cta b/l no wheezing no crackles Heart-s1 and s2 heard regular rate and rhythm no murmurs' Abdomen-soft bowel sounds present non tender no distension Extremities-no edema no erythema Neuro-alert and awake and oriented speech clear power 5/5 in all extremities sensations intact gait normal Lab data as noted below. ASSESSMENT & PLAN: 46 yo presents with acute stroke 1. L MCA stroke-no residual deficits on exam today. Significant family history of strokes at an early age. Hypercoagulable workup in progress per Neuro. On ASA/Plavix and Liptor. Added fish oil with for additional risk factor reduction in this young female with vascular disease and uncontrolled DMII. Echo no pfo. symptoms recurred today evening which are Getting better now and repeat ct head no acute findings plan for repeat MRI iv heparin without bolus and EEG study as patient family complained of facial twitching. today on 08/26/16 Patient and family lies to be transferred to tertiary center Patient was accepted in transfer to [facility].. 2. DMII-uncontrolled with A1C 9.2-cont inpatient management with ISS and Lantus , fingersticks qACHS. Plan to discharge on lantus and iss and metformin. Will monitor.Discharged to [facility] 3. HTN-controlled, allow permissive HTN. Hold lisinopril for now 4. Dyslipidemia-triglycerides are very elevated. Pt was put on Lipitor as an outpatient but was noncompliant. Agrres to be on statins now. To be discharged on Lipitor 80mg and Fish oil and close followup with PCP. Discharged to [facility] Vital Signs: Date Time Temp Pulse Resp B/P Pulse Ox O2 Delivery O2 Flow Rate FiO2 08/26/16 12:00 36.8 74 19 140/49 100 Room Air 08/26/16 12:00 96 Room Air 08/26/16 11:15 36.8 75 18 96 Room Air 08/26/16 08:00 96 Room Air 08/26/16 07:58 36.8 75 18 116/60 96 Room Air 08/26/16 05:00 36.6 65 22 124/60 97 Room Air 08/26/16 04:20 Room Air 08/26/16 00:00 36.4 63 18 131/54 98 Room Air 08/25/16 23:30 95 Room Air 08/25/16 20:00 95 Room Air 08/25/16 19:46 36.8 62 16 117/59 95 Room Air Lab Results: Results Past 24 Hours Test 08/25/16 20:10 08/26/16 02:14 08/26/16 06:57 08/26/16 10:57 Range/Units Bedside Glucose 169 136 70-90 mg/dl Activated Partial Thromboplast Time 38.7 76.3 21.0-31.0 SECONDS Partial Thromboplastin Ratio 1.5 2.9 Test 08/26/16 11:16 Range/Units Bedside Glucose 227 70-90 mg/dl
--- NOTE | 2016-08-26 19:36 | Discharge Summary ---
Discharge Summary Date of Service Aug 26, 2016. Discharge Summary Admission Date: Aug 22, 2016 at 17:47 Discharge Date: Aug 26, 2016 Discharge Disposition: Acute care facility Principal Diagnosis: CVA Secondary Diagnoses/Problems: (1) Diabetes mellitus, type II Status: Chronic (2) Dyslipidemia Status: Chronic (3) HTN (hypertension) Status: Chronic Procedures: NECK MRA: Mild atherosclerotic change of the carotid bifurcations. No significant stenotic process. 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 BRAIN MRI: 1. Several punctate foci of acute/subacute ischemic change left frontoparietal convexity and left occipital lobe. 2. 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 HEAD CTA:1. There is no hemorrhage, mass effect, or evidence of acute territorial ischemia by CT criteria. 2. There are subtle foci of low-attenuation within the left-sided subcortical and periventricular white matter. These likely correspond to the small infarcts identified on yesterday's MRI. 3. There is high-grade stenosis (approximately 75%) within the supraclinoid portion of the intracranial left internal carotid artery with near complete occlusion at the left carotid apex. Narrowing is also seen at the origin of the left middle cerebral artery. The remainder of the left middle cerebral artery is clear. 4. The remaining intracranial vessels are patent. No aneurysm or focal vessel cut off is seen. 5. There is mild (less than 50%) stenosis at the origin of the right internal carotid artery secondary to soft plaque. 6. There is approximately 60% stenosis at the origin of the left internal carotid artery secondary to soft plaque. 7. The vertebral arteries are patent. VENOUS DOPPLER: There is no sonographic evidence of deep venous thrombosis identified in the right or left lower extremity. ECHO:The left ventricular wall motion is normal. * There is no left ventricular mural thrombus. * Left ventricular systolic function is normal. * The LV Ejection Fraction = 50-55%. * There is no significant valvualar heart disease. * There is no evidence of atrial septal defect, but resolution does not allow assessment for a patent foramen ovale. * An agitated saline contrast injection was performed for assessment of interatrial shunt, and was negative for shunt , however these images were suboptimal. * Otherwise this transthoracic echocardiogram is felt to be of high technical quality. Consultations: Neuro Medication Reconciliation New Medications: Insulin Glargine (Lantus Solostar) 100 Unit/Ml Inj 10 UNITS SC QPM, #1 PEN 2 Refills Aspirin (Aspirin EC Low Dose) 81 Mg Ectab 81 MG PO QAM, #30 2 Refills Atorvastatin (Atorvastatin Calcium) 40 Mg Tab 80 MG PO QAM, #30 TAB 2 Refills Clopidogrel Bisulfate (Clopidogrel) 75 Mg Tab 75 MG PO QAM, #30 TAB 2 Refills Fish Oil (Fish Oil) 1 Gm Cap 1 GM PO BID for 30 Days, #60 CAP 2 Refills Insulin Aspart (Novolog Flexpen) 100 Units/Ml Inj 0 UNITS SC ACHS for 30 Days, 2 Refills NOVOLOG INSULIN SLIDING SCALE GOAL RANGE 100 TO 140MG/DL CORRECTION FACTOR 40( ONE UNIT OF NOVOLOG INSULIN FOR BLOOD SUGAR READINGS 40MG/DL ABOVE GOAL RANGE). CARB COUNT 1:12 (ONE UNIT OF NOVOLOG INSULIN FOR EVERY 12GMS OF CARBS.) Continued Medications: Lisinopril (Zestril) 10 Mg Tab 10 MG PO DAILY, TAB Metformin Hcl (Glucophage) 1,000 Mg Tab 1000 MG PO BID, TAB Valacyclovir (Valtrex) 500 Mg Tab 1000 MG PO Q12 for RESQUE PKT, TAB PRN FOR 1 DAY Discontinued Medications: Atorvastatin (Lipitor) 40 Mg Tab 40 MG PO DAILY, TAB Glimepiride (Glimepiride) 2 Mg Tab 1 TAB PO DAILY for 90 Days Insulin Glargine (Lantus) 100 Unit/Ml Inj 10 SC QPM, VIAL Admission Information HPI (per Admitting provider): This is a 46 y/o female with PMHx of DM 2, HTN, Dyslipidemia and other problems as outlined below who presents with complaints of persistent neurologic symptoms for the past 2 months. Patient reports that starting 2 months ago she began noticing intermittent R hand numbness as well as difficulty finding words. The sxs would persist for up to 30 minutes before resolving. A few weeks ago patient began experiencing R sided facial numbness that was associated with R eye "pressure". She saw her PCP yesterday and had blood work and a CT head done today. After the CT scan, patient's mother noticed that she was having garbled speech therefore they came to the ED for further evaluation. Patient's grandmother had a stroke in her 40s and patients father suffered a stroke at the age of 60. Patient has a history of uncontrolled DM2, HTN and Dyslipidemia. She was prescribed a statin 2 years ago however she has never taken it because a friend told her it would give her muscle aches. Pt denies fever/chills, headaches, diaphoresis, chest pain, palpitations, SOB, abd pain, N/V, bowel or bladder issues, LE edema, calf pain, difficulty ambulating, difficulty swallowing, lightheadedness/dizziness. In the ED, vitals are stable. labs reviewed are unremarkable. CT head + nonspec small hypodense patch in the L parietal area without evidence of hemorrhage. Pt is still experiencing difficulty finding words. She will be admitted for further evaluation and treatment. Physical Exam (per Admitting): General Appearance: WD/WN, no apparent distress, + pertinent finding (Pt is sitting up in bed with mother and at bedside) Head: normocephalic, atraumatic Eyes: normal inspection, PERRL, EOMI ENT: hearing grossly normal Neck: supple Respiratory/Chest: chest non-tender, lungs clear, normal breath sounds, no respiratory distress Cardiovascular: regular rate, rhythm, no edema, no murmur Abdomen/GI: normal bowel sounds, non tender, soft Back: normal inspection Extremities/Musculoskelatal: normal inspection, no calf tenderness, no pedal edema Neurologic/Psych: counter tacker II-XII nml as tested, no motor/sensory deficits, alert , normal mood/affect, oriented x 3 Skin: normal color, warm/dry Physical Exam (per Admitting): General Appearance: WD/WN, no apparent distress, + pertinent finding (Pt is sitting up in bed with mother and at bedside) Head: normocephalic, atraumatic Eyes: normal inspection, PERRL, EOMI ENT: hearing grossly normal Neck: supple Respiratory/Chest: chest non-tender, lungs clear, normal breath sounds, no respiratory distress Cardiovascular: regular rate, rhythm, no edema, no murmur Abdomen/GI: normal bowel sounds, non tender, soft Back: normal inspection Extremities/Musculoskelatal: normal inspection, no calf tenderness, no pedal edema Neurologic/Psych: counter tacker II-XII nml as tested, no motor/sensory deficits, alert, normal mood/affect, oriented x 3 Skin: normal color, warm/dry Hospital Course 46 yo presents with acute stroke 1. L MCA stroke-no residual deficits on exam today. Significant family history of strokes at an early age. Hypercoagulable workup in progress per Neuro. On ASA/Plavix and Liptor. Added fish oil with for additional risk factor reduction in this young female with vascular disease and uncontrolled DMII. Echo no pfo. symptoms recurred today evening which are Getting better now and repeat ct head no acute findings plan for repeat MRI iv heparin without bolus and EEG study as patient family complained of facial twitching. today on 08/26/16 Patient and family lies to be transferred to tertiary center Patient was accepted in transfer to [facility].. 2. DMII-uncontrolled with A1C 9.2-cont inpatient management with ISS and Lantus , fingersticks qACHS. Plan to discharge on lantus and iss and metformin. Will monitor.Discharged to [facility] 3. HTN-controlled, allow permissive HTN. Hold lisinopril for now 4. Dyslipidemia-triglycerides are very elevated. Pt was put on Lipitor as an outpatient but was noncompliant. Agrres to be on statins now. To be discharged on Lipitor 80mg and Fish oil and close followup with PCP. Discharged to [facility] Total time spent on discharge = 45MINUTES This includes examination of the patient, discharge planning, medication reconciliation, and communication with other providers. Discharge Instructions Discharge Instructions Date of Service Aug 26, 2016. Admission Reason for Admission: Stroke Discharge Discharge Diagnosis / Problem: CVA Discharge Goals Goal(s): Decrease discomfort, Improve function Activity Recommendations Activity Level: Up Ad Jaida, Ambulates in room Therapies: Physical Therapy, Occupational Therapy . Additional Information Patient informed of condition: Yes Advance Directives: Yes DNR: No Level of Care: Other (ACUTE CARE FACILITY) Communicable Disease: No Prognosis: Stable Pastrana Catheter: No Instructions / Follow-Up Instructions / Follow-Up FOLLOWUP PER [facility] RECOMMENDATIONS ON DISCHARGE Current Hospital Diet Patient's current hospital diet: AHA Diet (Heart Healthy), Diabetes Type 2 Diet Discharge Diet Recommended Diet: AHA Diet (Heart Healthy), Diabetes Type 2 Diet Pending Studies Studies pending at discharge: no Physician Orders On Transfer Special Precautions: FALL AND ASPIRATION PRECAUTIONS IV Therapy: IV HEPARIN Vital Signs: EVERY 8HRS Additional Orders: PLEASE REFER TO MEDICATION RECONCILIATION FOR ACCURATE MEDICATION LIST Laboratory Results Hemoglobin A1c Test 08/22/16 16:13 Range/Units Estimated Average Glucose 235 mg/dl Hemoglobin A1c 9.8 H 4.5-5.6 % Lipid Panel Test 08/23/16 05:21 Range/Units Triglycerides Level 450 H 0-150 mg/dl Cholesterol Level 223 H 0-200 mg/dl HDL Cholesterol 43 mg/dl Cholesterol/HDL Ratio 5.2 LDL Cholesterol, Calculated mg/dl Medical Emergencies . Who to Call and When: Medical Emergencies: If at any time you feel your situation is an emergency, please call 911 immediately. . Non-Emergent Contact Non-Emergency issues call your: Primary Care Provider . . "Provider Documentation" section prepared by Mike Kirby. Core Measure Problem Core Measures: Stroke Stroke Core Measures Reason no t-PA for Stroke: Treatment not indicated Reason no antithrom by day 2: Treatment provided - N/A Reason no antithrom at D/C: Treatment provided - N/A Reason no statin at D/C: Treatment provided - N/A Reason no anticoag w/a fib: Treatment not indicated
--- NOTE | 2016-08-27 17:58 | ELECTROENCEPHALOGRAPH REPORT ---
CLINICAL DIAGNOSIS: Possible stroke. ELECTROENCEPHALOGRAM DIAGNOSIS: Essentially normal during wakefulness. DESCRIPTION OF TRACING: This EEG was done as a bedside recording with simultaneous analysis of patient movement and behavior by video camera. Photic stimulation was performed. Hyperventilation was not. Drowsiness and light sleep were not recorded. Under these conditions, there is evidence for normal appearing background rhythm in the alpha range of up to 10 Hz of maximum frequency and 30 microvolts of maximum amplitude. This is maximum posterior head regions bilaterally symmetrical. Polymorphic mid frequency theta activity is seen over all head regions without clear focal or regional predominance. Anterior head region maximum bilaterally symmetrical low voltage fast activity in the beta range is present. Photic stimulation provoked some modest driving response at most flash frequencies without a photomyogenic or photoparoxysmal component. At no time during the waking tracing is there evidence for potentially epileptogenic activity in the form of polyspike or spike wave bursts, focal sharp waves or focal spikes. INTERPRETATION: This EEG is essentially normal during wakefulness without evidence for focal or generalized encephalopathy and without evidence for potentially epileptogenic activity.
[2016-08-28 16:21] LABS: ANTITHROMBINIII ACTIVITY** 94 % activity (80-120); B2 GLYCOPROTEIN IGA <9 SAU (<=20); B2 GLYCOPROTEIN IGG <9 SGU (<=20); B2 GLYCOPROTEIN IGM <9 SMU (<=20); LUPUS ANTICOAGULANT** TC36573X Negative (Negative); PROTEIN C ACTIVITY** TC 1777X 142 % (70-180); PROTEIN S ACT(FUNCT)**1779X 97 % (60-140)
== END 2016-08-26 15:45 | disposition short-term general hospital (02) | DRG 66 ==
LOC: ENRESERVDT → ENRESERVTM → C.EDB 15:22 → C.2E 17:47
PROVIDERS: ADMIT Internal Medicine; ATTEND Internal Medicine
DX: I63.512 Cerebral infarction due to unspecified occlusion or stenosis of left middle cerebral artery (principal); R20.0 Anesthesia of skin; R47.1 Dysarthria and anarthria; H53.8 Other visual disturbances; R25.3 Fasciculation; E11.65 Type 2 diabetes mellitus with hyperglycemia; E78.1 Pure hyperglyceridemia; E78.5 Hyperlipidemia, unspecified; I10 Essential (primary) hypertension; Z82.3 Family history of stroke; Z91.14 Patient's other noncompliance with medication regimen; Z79.4 Long term (current) use of insulin; Z79.84 Long term (current) use of oral hypoglycemic drugs; Z79.899 Other long term (current) drug therapy

== ENCOUNTER 2016-10-30 12:44 | Emergency (ER) | payer OTHER ==
[~2016-10-30] VITALS: Ht 172.7 cm; Wt 94.9 kg
[~2016-10-30 12:44] MED LIST: ASPEC81 PO; ATOR-24 PO; GLIM2TAB2 PO; INSDGI SC; INSDGIPEN SC; LISI-461 PO; LPT40 PO; METF-384 PO; NVLGIPEN SC; OMG3 PO; PLV75 PO; VALA500T60 PO
[2016-10-30 12:52] VITALS: TEMP 36.8; Ht 172.7 cm; Wt 94.9 kg
[2016-10-30] MEDS ORDERED: OXYC1TAB3 PO (13:26)
[2016-10-30] MEDS ORDERED: METO-157 PO (13:26)
[2016-10-30] MEDS ORDERED: OPTIRAY 320 IV PRN (13:30)
--- NOTE | 2016-10-30 13:31 | EMERGENCY ROOM VISIT NOTE ---
History First contact with patient: 13:11 Chief Complaint: CARDIAC ASSESSMENT Stated Complaint: BRAIN SURGERY X10 DAYS AGO, NOW HAS CHEST PAIN Nursing Triage Summary: Pt reports for 2 days she gets pain in her right side/breath when she breaths. Denies SOB or breathing difficulty. Pt had brain surgery 2 weeks ago History of Present Illness The patient is a 46 year old female who presents to the Emergency Room with complaints of right-sided chest pain and pain with deep inspiration. The patient was seen here at the beginning of last month. The patient suffered a CVA. She was transferred to [place] and discharged around October 01. She states that she then went to [facility] and had brain surgery on October 16. She states that they did an indirect of bypass in the temporal artery. The patient has been doing quite well. She has had some minimal persistent expressive aphasia which was to be expected per her neurosurgeon. The patient states that 2 days ago she noticed pain in the right shoulder and upper chest. She reports pain with deep inspiration. She rates her discomfort an 8/10. She does not report any pain with palpation or movement of the shoulder. She denies any abdominal pain. She took a pain pill this morning and did have 2 episodes of vomiting. She attributes this to the pain medication. She denies any new numbness, tingling, weakness. She denies any extremity swelling. She denies any diarrhea. She denies any worsening neurologic symptoms. The patient was diagnosed with Galaviz Galaviz. At this point, her hypercoagulable workup has been negative. There has been a significant family history for CVA at a young age. She denies any personal history of DVT or PE. Review of Systems A 10 system review of systems was completed with positives and pertinent negatives listed in the HPI. Past Medical/Surgical History Medical Problems: (1) Diabetes mellitus, type II (2) Dyslipidemia (3) HTN (hypertension) (4) Galaviz galaviz disease (5) Stroke Surgical Problems: (1) History of section Family History No pertinent family history Social History Smoking Status: Never Smoker Drug Use: none Marital Status: Housing Status: lives with family Current/Historical Medications Scheduled Atorvastatin (Atorvastatin Calcium), 80 MG PO QAM Insulin Aspart (Novolog Flexpen), 0 UNITS SC ACHS Insulin Glargine (Lantus), 10 SC QPM Lisinopril (Zestril), 10 MG PO DAILY Metformin Hcl (Glucophage), 1,000 MG PO BID Scheduled PRN Metoclopramide (Reglan), 20 MG PO Q6H PRN for Nausea or Vomiting Oxycodone Immediate Rel Tab (Roxicodone Ir), 5-10 MG PO Q6H PRN for Pain Allergies Uncoded Allergies: SILK TAPE- TAPE BLISTERS (Allergy, Unknown, 07/14/02) Physical Exam Vital Signs Date Time Temp Pulse Resp B/P (MAP) Pulse Ox O2 Delivery O2 Flow Rate FiO2 10/30/16 15:02 57 18 128/67 100 Room Air 10/30/16 14:06 57 18 134/64 100 Room Air 10/30/16 13:20 59 10/30/16 13:04 99 Room Air 10/30/16 12:52 36.8 63 18 131/81 99 Room Air Physical Exam VITALS: Vitals are noted on the nurse's note and reviewed by myself. Vital signs stable. The patient is afebrile. She is not tachycardic, tachypneic or hypoxic. GENERAL: This is a 46-year-old female, in no acute distress, nondiaphoretic, well-developed well-nourished. SKIN: There is a vertical, healing surgical incision to the left side of the scalp. There is no significant erythema or discharge. There is minimal edema. There is no tenting of the skin. Capillary reflex less than 2 seconds. HEAD: Normocephalic atraumatic. EARS: External auditory canals clear, tympanic membranes pearly cardoso without erythema or effusion bilaterally. EYES: Pupils equal round and reactive to light and accommodation. Conjunctivae without injection, sclerae without icterus. Extraocular movements intact. NOSE: Patent, turbinates without inflammation or discharge. No sinus tenderness. MOUTH: Mucous membranes moist. Tonsils are not enlarged. Pharynx without erythema or exudate. Uvula midline. Airway patent. Tongue does not deviate. NECK: Supple without nuchal rigidity. No lymphadenopathy. No thyromegaly. Cervical spine is nontender. No JVD. HEART: Regular rate and rhythm without murmurs gallops or rubs. LUNGS: Clear to auscultation bilaterally without wheezes, rales or rhonchi. No retractions or accessory muscle use. There is no tenderness to palpation of the chest. ABDOMEN: Positive bowel sounds x 4. Soft, nontender, without masses or organomegaly. Diane sign negative. MUSCULOSKELETAL: No muscle atrophy, erythema, or edema noted. Full range of motion without joint tenderness in all extremities. No tenderness to palpation. Normal gait. Strength 5/5 throughout. There is no tenderness to the shoulder pain with moving the shoulder. NEURO: Patient was alert and oriented to person place and time. No focal neurological deficits. Medical Decision & Procedures ER Provider Diagnostic Interpretation: SINGLE VIEW CHEST CLINICAL HISTORY: Atypical chest pain. Dyspnea. FINDINGS: An AP, portable, upright chest radiograph is compared to study dated 08/22/2016. The cardiomediastinal silhouette is unremarkable. The lungs and pleural spaces are clear. No pneumothorax is seen. The bony thorax is grossly intact. IMPRESSION: No active disease in the chest. CT ANGIOGRAM OF THE CHEST CLINICAL HISTORY: Right-sided chest pain. Dyspnea. Recent surgery. COMPARISON STUDY: No previous studies for comparison. TECHNIQUE: Following the IV administration of 79 mL of Optiray-320, CT angiogram of the thorax was performed from the thoracic inlet to the lung bases utilizing the pulmonary embolus protocol. Images are reviewed in the axial, sagittal, and coronal planes. IV contrast was administered without complication. MIP imaging was performed. CT DOSE: 470.47 mGy.cm FINDINGS: No pathologically enlarged axillary mediastinal or hilar lymph nodes were visualized. There was no evidence of thoracic aortic dilatation. There were no pulmonary artery filling defects to indicate acute pulmonary embolism. No pleural effusions are visualized. There was no evidence of focal pulmonary consolidation. IMPRESSION: 1. No evidence of acute pulmonary embolism 2. No evidence of focal pulmonary consolidation Laboratory Results 10/30/16 13:10 Red Blood Count 4.48, Mean Corpuscular Volume 82.8, Mean Corpuscular Hemoglobin 26.1, Mean Corpuscular Hemoglobin Concent 31.5, Mean Platelet Volume 10.4, Neutrophils (%) (Auto) 77.9, Lymphocytes (%) (Auto) 15.5, Monocytes (%) (Auto) 4.5, Eosinophils (%) (Auto) 1.4, Basophils (%) (Auto) 0.6, Neutrophils # (Auto) 6.89, Lymphocytes # (Auto) 1.37, Monocytes # (Auto) 0.40, Eosinophils # (Auto) 0.12, Basophils # (Auto) 0.05 10/30/16 13:10 Test 10/30/16 13:10 10/30/16 13:31 10/30/16 14:05 White Blood Count 8.84 K/uL (4.8-10.8) Red Blood Count 4.48 M/uL (4.2-5.4) Hemoglobin 11.7 g/dL (12.0-16.0) Hematocrit 37.1 % (37-47) Mean Corpuscular Volume 82.8 fL (80-100) Mean Corpuscular Hemoglobin 26.1 pg (25-34) Mean Corpuscular Hemoglobin Concent 31.5 g/dl (32-36) Platelet Count 408 K/uL (130-400) Mean Platelet Volume 10.4 fL (7.4-10.4) Neutrophils (%) (Auto) 77.9 % Lymphocytes (%) (Auto) 15.5 % Monocytes (%) (Auto) 4.5 % Eosinophils (%) (Auto) 1.4 % Basophils (%) (Auto) 0.6 % Neutrophils # (Auto) 6.89 K/uL (1.4-6.5) Lymphocytes # (Auto) 1.37 K/uL (1.2-3.4) Monocytes # (Auto) 0.40 K/uL (0.11-0.59) Eosinophils # (Auto) 0.12 K/uL (0-0.5) Basophils # (Auto) 0.05 K/uL (0-0.2) RDW Standard Deviation 41.3 fL (36.4-46.3) RDW Coefficient of Variation 13.6 % (11.5-14.5) Immature Granulocyte % (Auto) 0.1 % Immature Granulocyte # (Auto) 0.01 K/uL (0.00-0.02) Prothrombin Time 10.6 SECONDS (9.0-12.0) Prothromb Time International Ratio 1.0 (0.9-1.1) Activated Partial Thromboplast Time 25.0 SECONDS (21.0-31.0) Partial Thromboplastin Ratio 1.0 Est Creatinine Clear Calc Drug Dose 107.2 ml/min Estimated GFR () 104.0 Estimated GFR (Non- 89.8 BUN/Creatinine Ratio 13.5 (10-20) Calcium Level 9.1 mg/dl (8.5-10.1) Total Bilirubin 0.2 mg/dl (0.2-1) Aspartate Amino Transf (AST/SGOT) 16 U/L (15-37) Alanine Aminotransferase (ALT/SGPT) 37 U/L (12-78) Alkaline Phosphatase 89 U/L (45-117) Troponin I < 0.015 ng/ml (0-0.045) Total Protein 7.9 gm/dl (6.4-8.2) Albumin 3.7 gm/dl (3.4-5.0) Globulin 4.2 gm/dl (2.5-4.0) Albumin/Globulin Ratio 0.9 (0.9-2) Bedside Hemoglobin 12.9 g/dl (12.0-16.0) Bedside Hematocrit 38 % (37-47) Bedside Sodium 136 mEq/L (135-144) Bedside Potassium 4.2 mEq/L (3.3-5.0) Bedside Chloride 97 mEq/L (101-112) Bedside Total CO2 27 mEq/l (24-31) Anion Gap 17.0 mmol/L (16-25) Bedside Blood Urea Nitrogen 11 mg/dl (7-18) Bedside Creatinine 0.7 mg/dl (0.6-1.3) Bedside Glucose (other) 151 mg/dl (70-99) Bedside Ionized Calcium (Beatriz) 1.21 mmol/l (1.12-1.32) Urine Color YELLOW Urine Appearance CLEAR (CLEAR) Urine pH 5.0 (4.5-7.5) Urine Specific [place] 1.023 (1.000-1.030) Urine Protein NEG (NEG) Urine Glucose (UA) NEG (NEG) Urine Ketones NEG (NEG) Urine Occult Blood 3+ (NEG) Urine Nitrite NEG (NEG) Urine Bilirubin NEG (NEG) Urine Urobilinogen NEG (NEG) Urine Leukocyte Esterase NEG (NEG) Urine WBC (Auto) 0 /hpf (0-5) Urine RBC (Auto) >30 /hpf (0-4) Urine Hyaline Casts (Auto) 1-5 /lpf (0-5) Urine Epithelial Cells (Auto) >30 /lpf (0-5) Urine Bacteria (Auto) NEG (NEG) Procedure The patient was monitored on a panel monitor. They maintained a normal sinus rhythm without ectopy. ECG Indication: chest pain Rate (beats per minute): 60 Rhythm: normal sinus Findings: no acute ischemic change Change: no significant change ED Course The patient was seen and examined. Previous visits were reviewed. Medication Reconciliation: I attest that I have personally reviewed the patient' s current medication list. The patient does not have a fever or leukocytosis. She does not have any significant electrolyte abnormality. Troponin is not elevated. INR is 1.0. Urinalysis reveals hematuria but the patient currently has her menses. The patient presents to the emergency department with chest pain. She has had chest pain for the last 2 days. She has also had pain with deep inspiration. The patient had recent neurosurgery at [facility]. The above workup is negative for pulmonary embolus. A troponin is negative with 2 days of chest pain. I did discuss the case with the neurosurgery PA at [facility]. He did not feel that there is any more to do from a neurologic standpoint if she has not had any significant changes in her neurologic symptoms. The patient should follow-up with her family doctor for further evaluation and management and possible outpatient stress test. She should return to the ER with any worsening symptoms. The case was discussed with Dr. Zamarripa who agrees with the assessment and treatment plan. Medical Decision DIFFERENTIAL DIAGNOSIS: Aortic dissection, myocarditis, pericarditis, cervical disc disease, costochondritis, herpes zoster, rib fracture, pleuritis, pneumonia , pulmonary embolus, tension pneumothorax, anxiety disorder, somatoform disorder , choledocholithiasis, status, esophagitis, esophageal spasm, esophageal reflux , esophageal rupture, pancreatitis, peptic ulcer disease, cardiac ischemia, ST elevation VT, acute coronary syndrome, arrhythmia, coronary artery vasospasm. vavular heart disease, coronary artery disease, among others. Impression Primary Impression: Precordial chest pain Departure Information Dispostion Home / Self-Care Condition GOOD Referrals Rashid Strickland M.D. (PCP) Patient Instructions Chest Pain - [facility], My [facility] Additional Instructions Return with worsening pain or trouble breathing Otherwise, follow up with your neurosurgeon and family doctor
[2016-10-30 13:44] LABS: ISTAT CREATININE 0.7 mg/dl (0.6-1.3); ISTAT HEMOGLOBIN 12.9 g/dl (12.0-16.0); ISTAT IONIZED CALCIUM 1.21 mmol/l (1.12-1.32)
[2016-10-30 13:55] LABS: PROTHROMBIN TIME (PATIENT) 10.6 SECONDS (9.0-12.0)
[2016-10-30 13:57] LABS: BASO % 0.6 %; BASO ABS # 0.05 K/uL (0-0.2); COMPLETE YES; EOS % 1.4 %; HEMATOCRIT 37.1 % (37-47); IG% 0.1 %; LYMPH % 15.5 %; LYMPH ABS # 1.37 K/uL (1.2-3.4); MEAN CELL VOLUME 82.8 fL (80-100); MEAN CORPUSCULAR HEMOGLOBIN 26.1 pg (25-34); MEAN CORPUSCULAR HGB CONC 31.5 g/dl (32-36); MEAN PLATELET VOLUME 10.4 fL (7.4-10.4); MONO % 4.5 %; NEUT % 77.9 %; PLATELET COUNT 408 K/uL (130-400); RED BLOOD COUNT 4.48 M/uL (4.2-5.4); WHITE BLOOD COUNT 8.84 K/uL (4.8-10.8)
[2016-10-30 14:01] LABS: ALT/SGPT 37 U/L (12-78); BLOOD UREA NITROGEN 11 mg/dl (7-18); BUN/CREATININE RATIO 13.5 (10-20); CARBON DIOXIDE 26 mmol/L (21-32); CHLORIDE 100 mmol/L (98-107); CREATININE 0.79 mg/dl (0.60-1.20); GLUCOSE 142 mg/dl (70-99); POTASSIUM 4.2 mmol/L (3.5-5.1); SODIUM 136 mmol/L (136-145)
--- NOTE | 2016-10-30 14:04 | DIAGNOSTIC IMAGING REPORT ---
CT ANGIOGRAM OF THE CHEST CLINICAL HISTORY: Right-sided chest pain. Dyspnea. Recent surgery. COMPARISON STUDY: No previous studies for comparison. TECHNIQUE: Following the IV administration of 79 mL of Optiray-320, CT angiogram of the thorax was performed from the thoracic inlet to the lung bases utilizing the pulmonary embolus protocol. Images are reviewed in the axial, sagittal, and coronal planes. IV contrast was administered without complication. MIP imaging was performed. CT DOSE: 470.47 mGy.cm FINDINGS: No pathologically enlarged axillary mediastinal or hilar lymph nodes were visualized. There was no evidence of thoracic aortic dilatation. There were no pulmonary artery filling defects to indicate acute pulmonary embolism. No pleural effusions are visualized. There was no evidence of focal pulmonary consolidation. IMPRESSION: 1. No evidence of acute pulmonary embolism 2. No evidence of focal pulmonary consolidation Electronically signed by: Segundo Cuevas M.D. 10/30/2016 2:02 PM Dictated Date/Time: 10/30/2016 1:59 PM
[2016-10-30 14:05] LABS: ALB/GLOB RATIO 0.9 (0.9-2); ALKALINE PHOSPHATASE 89 U/L (45-117); AST/SGOT 16 U/L (15-37)
--- NOTE | 2016-10-30 14:18 | DIAGNOSTIC IMAGING REPORT ---
SINGLE VIEW CHEST CLINICAL HISTORY: Atypical chest pain. Dyspnea. FINDINGS: An AP, portable, upright chest radiograph is compared to study dated 08/22/2016. The cardiomediastinal silhouette is unremarkable. The lungs and pleural spaces are clear. No pneumothorax is seen. The bony thorax is grossly intact. IMPRESSION: No active disease in the chest. Electronically signed by: Albert Swanson M.D. 10/30/2016 2:17 PM Dictated Date/Time: 10/30/2016 2:17 PM
[2016-10-30 14:50] LABS: URINE APPEARANCE CLEAR (CLEAR); URINE BILIRUBIN NEG (NEG); URINE COLOR YELLOW; URINE EPITHELIAL CELL AUTO >30 /lpf (0-5); URINE NITRITE NEG (NEG); URINE SPECIFIC GRAVITY 1.023 (1.000-1.030); UROBILINOGEN NEG (NEG); ZZUR CULT IF INDIC CLEAN CATCH NO
[2016-10-30 14:55] LABS: CALCIUM 9.1 mg/dl (8.5-10.1)
[2016-10-30 14:55] LABS: MANUAL MICROSCOPIC REQUIRED? NO; REVIEW REQ? NO
[2016-10-30 15:02] VITALS: BP 128/67; PULSE 57; O2SAT 100
== END 2016-10-30 15:05 | disposition home or self-care (01) ==
LOC: C.EDB 12:47 → C.EDC 15:05
DX: R07.2 Precordial pain (principal); E11.9 Type 2 diabetes mellitus without complications; I10 Essential (primary) hypertension; E78.5 Hyperlipidemia, unspecified; I67.5 Moyamoya disease; Z86.73 Personal history of transient ischemic attack (TIA), and cerebral infarction without residual deficits; Z79.4 Long term (current) use of insulin; Z79.84 Long term (current) use of oral hypoglycemic drugs; Z79.899 Other long term (current) drug therapy; Z91.09 Other allergy status, other than to drugs and biological substances

== ENCOUNTER → 2017-01-26 | Outpatient (CLI) | payer OTHER ==
[~2017-01-26] MED LIST changes: -ASPEC81 PO; -ATOR-24 PO; -GLIM2TAB2 PO; -INSDGIPEN SC; +METO-157 PO; -OMG3 PO; +OXYC1TAB3 PO; -PLV75 PO; -VALA500T60 PO
== END | disposition home or self-care (01) ==
LOC: C.PAPS 14:10
PROVIDERS: ATTEND Obstetrics & Gynecology
DX: Z12.4 Encounter for screening for malignant neoplasm of cervix (principal); R87.610 Atypical squamous cells of undetermined significance on cytologic smear of cervix (ASC-US)